=== PATIENT | female | born 1945 | race Caucasian/White ===

== ENCOUNTER 2020-04-18 13:15 | Outpatient (REF) | payer MEDICARE, OTHER, SELFPAY ==
--- NOTE | 2020-04-18 13:24 | XR_ITS ---
EXAMINATION: XR CHEST CLINICAL INFORMATION: Cough COMPARISON: None TECHNIQUE: 2 views of the chest were obtained. FINDINGS: The cardiac and mediastinal contours are normal. There is increased attenuation and increased linear markings seen at the lung bases suggestive of bilateral subsegmental atelectasis or small infiltrates. This is greater on the left. There is no pleural effusion or pneumothorax. There are degenerative changes of the spine. XR/XR chest 2V IMPRESSION: Bibasilar atelectasis or small infiltrates, left greater than right.
== END 2020-04-18 13:16 | disposition home or self-care (01) ==
LOC: HO.HMGCX 13:15
PROVIDERS: PCP Internal Medicine; Visit Provider Internal Medicine
DX: R05 Cough (principal); Z20.822 Contact with and (suspected) exposure to COVID-19
CPT/HCPCS: 36415; 71046; U0003

== ENCOUNTER 2020-05-02 09:58 | Outpatient (REF) | payer MEDICARE, OTHER, SELFPAY ==
--- NOTE | 2020-05-02 10:04 | XR_ITS ---
EXAMINATION: XR CHEST CLINICAL INFORMATION: Cough. COMPARISON: 04/18/2020 chest radiographs. TECHNIQUE: 2 views of the chest were obtained. FINDINGS: There has been interval decrease in linear opacities in the left mid and lower lung morales. Mild linear markings are seen in the lingula and right middle lobe. XR/XR chest 2V IMPRESSION: Interval improvement in left lung linear opacities/infiltrates with minimal residual markings. Mild linear atelectasis versus scarring in the right middle lobe and lingula.
== END 2020-05-02 09:59 | disposition home or self-care (01) ==
LOC: HO.HMGCX 09:58
PROVIDERS: PCP Internal Medicine; Visit Provider Internal Medicine
DX: R05 Cough (principal)
CPT/HCPCS: 71046

== ENCOUNTER 2020-09-22 08:44 | Outpatient (REF) | payer MEDICARE, SELFPAY ==
[2020-09-22 11:20] LABS: Glucose Urine UA NEG (NEG); Leukocyte Esterase Urine NEG (NEG); Nitrite Urine NEG (NEG); PH 7.5 (5.0-8.0); Specific Gravity - Urine 1.015 (1.005-1.025); Urine Blood NEG (NEG); Urine Ketones NEG (NEG); Urine Protein NEG (NEG-TRACE)
[2020-09-22 11:22] LABS: Appearance Urine HAZY; Color Urine YELLOW
[2020-09-22 11:26] LABS: Hematocrit 43.1 % (37-47); Hemoglobin 13.9 g/dl (12.0-16.0); Mean Corpuscular HGB Conc 32.3 g/dl (31.0-35.0); Mean Corpuscular Hemoglobin 28.8 pg (27.0-33.0); Mean Corpuscular Volume 89.2 fL (80-98); Mean Platelet Volume 10.3 fL (9.4-12.3); Platelet Count 238 X10*3/uL (160-400); Red Blood Count 4.83 X10*6/uL (4.20-5.50); Red Cell Distribution Width 13.3 % (11.0-16.0); White Blood Count 5.4 X10*3/uL (4.8-10.8)
[2020-09-22 11:39] LABS: Mucus Urine 1+ /LPF; RBC Urine 0 /HPF (0); Renal Epithelial Cells Urine 1+ /LPF; Squamous Epithelial Cell Urine 1+ /LPF
[2020-09-22 11:40] LABS: Amorphous Sediment Urine 1+ /LPF
[2020-09-22 11:58] LABS: Alanine Aminotransferase 11 U/L (0-31); Alkaline Phosphatase 72 U/L (39-117); Anion Gap 13 (12-20); Aspartate Amino Transferase 17 U/L (5-31); Bilirubin Total 0.6 mg/dL (0.0-1.0); Blood Urea Nitrogen 17 mg/dL (9-16); Calcium 9.3 mg/dL (8.4-10.2); Carbon Dioxide 28 mmol/L (22-29); Chloride 106 mmol/L (96-108); Cholesterol 215 mg/dL; Estimated Glomerular Filt Rate > 60; Glucose Fasting 83 mg/dL (60-99); HDL Cholesterol 70 mg/dL; LDL Cholesterol Calculated 135 mg/dl; Potassium 4.6 mmol/L (3.3-5.1); Sodium 142 mmol/L (135-145); Total Protein 6.6 g/dL (6.5-8.0); Triglycerides 52 mg/dL
[2020-09-22 12:00] LABS: Vitamin D 25-OH Total 43.7 ng/mL (>30)
== END 2020-09-22 08:45 | disposition home or self-care (01) ==
LOC: HO.HMGCLDS 08:44
PROVIDERS: PCP Internal Medicine; Visit Provider Internal Medicine
DX: Z00.00 Encounter for general adult medical examination without abnormal findings (principal); I10 Essential (primary) hypertension; E78.5 Hyperlipidemia, unspecified
CPT/HCPCS: 36415; 80053; 80061; 81001; 82306; 85027

== ENCOUNTER 2021-10-18 09:24 | Outpatient (REF) | payer MEDICARE, SELFPAY ==
[2021-10-18 11:22] LABS: MANUAL DIFF FLAG NO
[2021-10-18 11:29] LABS: Basophils Absolute Auto 0.1 X10*3/uL (0.0-0.2); Eosinophils Absolute Auto 0.3 X10*3/uL (0.0-0.4); Eosinophils Percent Auto 6.3 % (0-4); Hematocrit 40.5 % (37.0-47.0); Hemoglobin 13.3 g/dl (12.0-16.0); Imm Gran Abs Auto 0.02 X10*3/uL (0.00-0.03); Imm Gran Pct Auto 0.4 % (0.0-0.4); Lymphocytes Absolute Auto 1.6 X10*3/uL (1.2-4.9); Lymphocytes Percent Auto 31.2 % (20-40); Mean Corpuscular HGB Conc 32.8 g/dl (31.0-35.0); Mean Corpuscular Hemoglobin 29.3 pg (27.0-33.0); Mean Corpuscular Volume 89.2 fL (80.0-98.0); Mean Platelet Volume 10.4 fL (9.4-12.3); Monocytes Absolute Auto 0.6 X10*3/uL (0.1-1.2); Monocytes Percent Auto 11.1 % (2-11); Neutrophils Absolute Auto 2.5 x10*3/uL (2.0-8.3); Platelet Count 248 X10*3/uL (160-400); Red Blood Count 4.54 X10*6/uL (4.20-5.50)
[2021-10-18 11:54] LABS: Alanine Aminotransferase 13 U/L (0-31); Alkaline Phosphatase 74 U/L (39-117); Anion Gap 11 (12-20); Aspartate Amino Transferase 17 U/L (5-31); Bilirubin Total 0.7 mg/dL (0.0-1.0); Blood Urea Nitrogen 16 mg/dL (9-16); Calcium 9.1 mg/dL (8.4-10.2); Carbon Dioxide 28 mmol/L (22-29); Chloride 107 mmol/L (96-108); Cholesterol 226 mg/dL; Estimated Glomerular Filt Rate > 60; Glucose Fasting 91 mg/dL (60-99); HDL Cholesterol 80 mg/dL; LDL Cholesterol Calculated 136 mg/dl; Potassium 4.6 mmol/L (3.3-5.1); Sodium 141 mmol/L (135-145); Total Protein 6.8 g/dL (6.5-8.0); Triglycerides 52 mg/dL
[2021-10-18 12:03] LABS: TSH reflex Free T4 1.76 uIU/mL (0.32-4.0)
== END 2021-10-18 09:25 | disposition home or self-care (01) ==
LOC: HO.HMGCLDS 09:24
PROVIDERS: PCP Internal Medicine; Visit Provider Internal Medicine
DX: E78.5 Hyperlipidemia, unspecified (principal); I10 Essential (primary) hypertension
CPT/HCPCS: 36415; 80053; 80061; 84443; 85025

== ENCOUNTER 2022-01-09 10:26 | Outpatient (REF) | payer MEDICARE, SELFPAY ==
--- NOTE | ~2022-01-09 | US_ITS ---
EXAMINATION: US ABDOMEN COMPLETE CLINICAL INFORMATION: Right upper quadrant pain. COMPARISON: None TECHNIQUE: Real-time imaging of the abdominal viscera. FINDINGS: PANCREAS: Normal. ABDOMINAL AORTA: The proximal, mid, and distal segments are normal in caliber. INFERIOR VENA CAVA: Visualized portions are normal. LIVER: Normal. The liver is normal in size. The liver contour is normal. Parenchymal echogenicity is normal. No focal hepatic lesion. There is no intrahepatic biliary duct dilatation seen. GALLBLADDER: Normal. The gallbladder is physiologically distended without evidence of stones, sludge, polyps, wall thickening or pericholecystic fluid. COMMON BILE DUCT: Normal in caliber measuring 0.75 cm in diameter. RIGHT KIDNEY: Normal. No hydronephrosis. No renal calculi or focal parenchymal lesions. The kidney measures 9.2 cm in maximum dimension. LEFT KIDNEY: There is a peripelvic cyst in the midpole measuring 2.2 x 1.5 x 1.7 cm. No hydronephrosis or renal calculi. The kidney measures 9.9 cm in maximum dimension. SPLEEN: Normal. The spleen measures 7.7 cm in maximum dimension. FREE FLUID: None. US/US abdomen complete IMPRESSION: Left renal cyst otherwise unremarkable exam.
== END 2022-01-09 10:27 | disposition home or self-care (01) ==
LOC: HO.HMGCX 10:26
PROVIDERS: PCP Internal Medicine; Visit Provider Internal Medicine
DX: R10.11 Right upper quadrant pain (principal)
CPT/HCPCS: 76700

== ENCOUNTER 2022-04-23 11:55 | Outpatient (REF) | payer MEDICARE, SELFPAY ==
[2022-04-23 14:20] LABS: Alanine Aminotransferase 11 U/L (0-31); Albumin Level 3.9 g/dL (3.5-5.0); Alkaline Phosphatase 70 U/L (39-117); Anion Gap 13 (12-20); Aspartate Amino Transferase 14 U/L (5-31); Bilirubin Total 0.5 mg/dL (0.0-1.0); Blood Urea Nitrogen 15 mg/dL (9-16); Calcium 9.5 mg/dL (8.4-10.2); Carbon Dioxide 29 mmol/L (22-29); Chloride 107 mmol/L (96-108); Cholesterol 205 mg/dL; Estimated Glomerular Filt Rate > 60; Glucose Fasting 87 mg/dL (60-99); HDL Cholesterol 77 mg/dL; LDL Cholesterol Calculated 118 mg/dl; Sodium 144 mmol/L (135-145); Total Protein 6.5 g/dL (6.5-8.0); Triglycerides 50 mg/dL
== END 2022-04-23 11:56 | disposition home or self-care (01) ==
LOC: HO.HMGCLDS 11:55
PROVIDERS: PCP Internal Medicine; Visit Provider Internal Medicine
DX: E78.5 Hyperlipidemia, unspecified (principal); I10 Essential (primary) hypertension
CPT/HCPCS: 36415; 80053; 80061

== ENCOUNTER → 2022-04-30 12:56 | Outpatient (BNVA) | payer MEDICARE, SELFPAY | PROVIDERS: PCP Internal Medicine; Visit Provider Surgery | DX: K40.90 Unilateral inguinal hernia, without obstruction or gangrene, not specified as recurrent (principal); E78.5 Hyperlipidemia, unspecified; I10 Essential (primary) hypertension | CPT/HCPCS: 99202 ==

== ENCOUNTER 2022-05-11 16:14 | Outpatient (REF) | payer MEDICARE, SELFPAY ==
--- NOTE | ~2022-05-11 | CT_ITS ---
EXAMINATION: CT PELVIS WITHOUT CONTRAST CLINICAL INFORMATION: Unilateral inguinal hernia. COMPARISON: None TECHNIQUE: Helical scanning was performed with submillimeter collimation through the pelvis. Sagittal and coronal multiplanar 2-D reconstructions were obtained. This CT examination was performed using dose optimization techniques as appropriate, variously including the following: *Automated exposure control *Adjustment of mA and/or kV according to patient size (this includes techniques or standardized protocols for targeted exams where dose is matched to indication/reason for exam; i.e. extremities or head) *Use of iterative reconstruction technique DLP: 739 mGy-cm FINDINGS: PELVIS: Bilateral inguinal hernias containing small bowel. The hernia on the right appears to be direct type (medial to the inferior epigastric artery). There may be a small femoral component on the right as well. The hernia on the left appears to be indirect (lateral to the inferior epigastric artery). There is no evidence of bowel obstruction. There are simple parapelvic cysts in the left kidney. No imaging follow-up is recommended. Mild diverticulosis of the sigmoid colon. No lymphadenopathy. Normal caliber abdominal aorta.. There is a simple cyst in the left ovary measuring 3.3 cm. OSSEOUS STRUCTURES: Degenerative changes in the spine. CT/CT pelvis wo IV con IMPRESSION: Right inguinal hernia containing small bowel (appears to be direct type) with possible small femoral component as well. Left inguinal hernia containing small bowel (appears to be indirect type). 3.3 cm simple density cyst in the left ovary. Recommend follow-up ultrasound in 6-12 months.
== END 2022-05-11 16:15 | disposition home or self-care (01) ==
LOC: HO.CT 16:14
PROVIDERS: Visit Provider Surgery
DX: K40.90 Unilateral inguinal hernia, without obstruction or gangrene, not specified as recurrent (principal)
CPT/HCPCS: 72192

== ENCOUNTER → 2022-05-22 14:51 | Outpatient (BNVA) | payer MEDICARE, SELFPAY | PROVIDERS: PCP Internal Medicine; Visit Provider Surgery | DX: K40.20 Bilateral inguinal hernia, without obstruction or gangrene, not specified as recurrent (principal); E55.9 Vitamin D deficiency, unspecified; I10 Essential (primary) hypertension; E78.5 Hyperlipidemia, unspecified | CPT/HCPCS: 99212 ==

== ENCOUNTER 2022-06-14 06:58 | Day surgery (SDC) | payer MEDICARE, SELFPAY ==
--- NOTE | 2022-06-13 10:48 | HO.ANESPROP2 ---
Documented by User: Cadence Lynn NP 06/13/22 10:53 HPI - Anesthesia Eval Consult details Narrative: 76yo F for Bilateral Hernia Repair Inguinal, w/mesh PMFSH Active Problems Active Problems: All Active Problems (Updated 05/25/22 @ 13:26 by Leah Oliva MD) Chest pain (Acute) Anxiety (Acute) Bilateral inguinal hernia without obstruction or gangrene (Acute) Inguinal hernia (Acute) Vitamin D deficiency (Acute) RUQ abdominal pain (Acute) HTN (hypertension) (Acute) Annual physical exam (Acute) Hyperlipidemia (Acute) Cough (Acute) Past Medical History Medical History Annual physical exam Cough GERD (gastroesophageal reflux disease) HTN (hypertension) Hyperlipidemia Surgical History Surgical History H/O colonoscopy Social History Social History Housing: House Alcohol intake: current Alcohol intake frequency: holidays/special occasions only Patient Tobacco Use Status: Never used Tobacco e-Cigarette/Vaping Use: Never Used Are you DNR?: No Advance Directives: No Advance Directives Information Provided: Yes Nutrition Risks: No Nutritional Risk Current occupational status: retired Cognitive needs: No Hearing needs: No Vision needs: No Meds Allergies Allergy/AdvReac Type Severity Reaction Status Date / Time No Known Allergies Allergy Verified 06/08/22 16:12 Home Medications Medication Instructions Recorded Confirmed Last Taken Type calcium carbonate 600 mg calcium 600 mg PO DAILY 04/30/22 06/08/22 Unknown History (1,500 mg) tablet (Calcium) aspirin 81 mg PO 06/14/22 06/11/22 History Exam Exam Date and Time: June 13, 2022 1048 Pertinent Lab Results Pertinent Lab Results: Laboratory Tests 10/18/21 04/23/22 09:29 12:02 WBC 5.0 Hgb 13.3 Hct 40.5 Plt Count 248 Sodium 144 Potassium 5.0 Chloride 107 Carbon Dioxide 29 BUN 15 Creatinine 0.65 Narrative Narrative: EKG 05/2022 SB @ 50 Assessment and Plan Assessment Anesthesia Assessment: Chart Reviewed Documented by User: Linus Foy MD 06/14/22 09:28 [facility] Past Medical History Medical History Annual physical exam Cough GERD (gastroesophageal reflux disease) HTN (hypertension) Hyperlipidemia Narrative: very active, swims. Family History Family history of problems with anesthesia: No Surgical History Surgical History H/O colonoscopy History of Problems with Anesthesia: No Social History Social History Housing: House Alcohol intake: current Alcohol intake frequency: holidays/special occasions only Patient Tobacco Use Status: Never used Tobacco e-Cigarette/Vaping Use: Never Used Are you DNR?: No Advance Directives: No Advance Directives Information Provided: Yes Nutrition Risks: No Nutritional Risk Current occupational status: retired Cognitive needs: No Hearing needs: No Vision needs: No Meds Allergies Allergy/AdvReac Type Severity Reaction Status Date / Time No Known Allergies Allergy Verified 06/08/22 16:12 Home Medications Medication Instructions Recorded Confirmed Last Taken Type calcium carbonate 600 mg calcium 600 mg PO DAILY 04/30/22 06/08/22 Unknown History (1,500 mg) tablet (Calcium) aspirin 81 mg PO 06/14/22 06/11/22 History Exam Airway Mallampati Class: I TM Dist: <=3cm Neck ROM: Full Denture: Upper and Lower Heart: ok Lungs: ok Assessment and Plan Assessment Anesthesia Assessment: Anesthesia Plan Discussed and Chart Reviewed Final Anesthetic Review Family History of Problems with Anesthesia: No History of Problems with Anesthesia: No NPO: Yes ASA Class: II Final Preanesthetic Review: No Changes in Pt Med Stat, Meds/Allgs Chart Reviewed, Consent Obtained/Reviewed and Anes Risks/Benef Reviewed Patient Risk: Intermediate Procedure Risk: Low Anesthetic Plan Anesthetic Plan: Agree w/ Assess. and Plan Disposition: Standard PACU
[2022-06-14 07:09] VITALS: BMI 29.9
[2022-06-14] MEDS: Lactated Ringers 1,000 ML 100 ML IVCONT (07:56)
[2022-06-14 08:07] VITALS: BP 150/77; PULSE 58; RESP 18; TEMP 36.7; O2SAT 97
--- NOTE | 2022-06-14 09:01 | MHC.SHP ---
Pre-Procedural Eval Section A Date of Service: 06/14/22 The patient is an INPATIENT: No The History & Physical has been completed within 30 days and I have reviewed it.: Yes Section B Chief Complaint: Bilateral inguinal hernia, without obstruction or Allergies: Allergies Allergy/AdvReac Type Severity Reaction Status Date / Time No Known Allergies Allergy Verified 06/08/22 16:12 Plan I have reviewed the history and physical and performed a pertinent physical examination on my patient. No changes have occurred unless specified. Time Spent With Patient Time: Total time managing care of this patient today ____ minutes.
--- NOTE | 2022-06-14 09:05 | P.OP_ITS ---
Operative Note Operative Note Date of Service: 06/14/22 Narrative: Preop diagnosis: [Bilateral inguinal hernia, left more symptomatic than right] Postop diagnosis: [Same, indirect and attenuated round ligaments bilaterally] Procedure: [Open bilateral inguinal hernia repair with polypropylene mesh] Surgeon: Deon Espinoza MD Assist: [] Anesthesia: [GET, Marcaine, 0.5% with epi] Estimated blood loss: [3cc] Specimen: [none] Intraoperative findings: [Bilateral inguinal hernia, mixed direct and indirect, attenuated round ligament bilaterally which was sacrificed bilateral] Indications: [The patient is a 76-year-old predominantly Croatian speaking woman who presented with left groin pain. Given her body habitus, and possible right- sided hernia, a CT was performed which demonstrated bilateral inguinal hernia. The patient also notes a history of 2 sisters having inguinal hernias and 1 of them had a repair and [place] and had a complications from the mesh. Given the symptomatic left side, via dock pumper we discussed the pros and cons of bilateral inguinal hernia verses unilateral left inguinal hernia repair. The risks of mesh use and need for mesh to minimize recurrence was also discussed and apparently understood. After long discussion, the patient wanted to proceed with bilateral inguinal hernia repair and agreed to mesh repair. The option of laparoscopic repair was also discussed. These risks of hernia surgery include, but are not limited to: Bleeding, infection, hernia recurrence especially if weight gain or postoperative instructions are not followed, nerve entrapment, chronic pain, mesh complications that could require reoperation. The patient se emed to understand all of these risks, benefits and options, had her questions answered and wanted to proceed. I recommended starting on the left, symptomatic side and the patient agreed. Procedure: The patient was identified in the preoperative holding area by myself and the operative site marked by me confirming bilateral inguinal hernia, and I confirmed we would start on the left.. 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 The operative field hair had been clipped in preop holding. The patient was again identified in the operating suite and placed supine on the table. See anesthesia notes for full details regarding anesthesia care and management. An appropriate time-out was performed confirming the operative site and procedure. The patient was then widely prepped and draped in the usual manner using chlorprep. An ileoinguinal nerve block was performed using Marcaine 0.5% with epi and a sta ndard left inguinal herniorrhaphy incision made sharply through the skin. Dissection was carried through all layers using electric cautery for dissection and hemostasis. Additional local was infiltrated is the external oblique aponeurosis, in the external oblique aponeurosis opened sharply in the direction of its fibers to the external ring. The ilioinguinal nerve was identified and sacrificed.. The round ligament was dissected at the level of the pubic tubercle and surrounded with hernia tape. The floor was inspected and a mixed direct & indirect left inguinal hernia was found. Careful dissection of the round ligament was attempted, but the structure was so attenuated it was ultimately sacrificed into the defect included in the floor imbrication. The hernia sac was highly dissected and the floor was imbricated using a 2-0 Polysorb and a standard Moiz tension-free herniorrhaphy performed using polypropylene patch that was sutured to the pubic tubercle and inguinal ligament using a 2-0 Polypropylene. Next, the operative field was inspected for hemostasis which was good, the external oblique aponeurosis was closed with a running 0 Polysorb suture, subcutaneous tissues closed with 3-0 Polysorb and skin closed with running 4-0 Monocryl subcuticular suture. Attention was then addressed to the right inguinal area and a right inguinal nerve block performed. A standard right inguinal herniorrhaphy incision made sharply through the skin. Dissection was carried through all layers using electric cautery for dissection and hemostasis. Additional local was infiltra brittany is the external oblique aponeurosis, in the external oblique aponeurosis opened sharply in the direction of its fibers to the external ring. The ilioinguinal nerve was identified and sacrificed through the dissection. The cord was mobilized at the level of the pubic tubercle and surrounded with hernia tape. The floor was inspected and a mixed direct and indirect hernia was found. The hernia sac was highly dissected its viable properitoneal fat reduced and suture imbrication of the floor performed with a 2 0 Polysorb. Next, a standard Moiz tension-free herniorrhaphy performed using polypropylene patch that was sutured to the pubic tubercle and inguinal ligament using a 2-0 Polypropylene. Next, the operative field was inspected for hemostasis which was good, the external oblique aponeurosis was closed with a running 0 Polysorb suture, subcutaneous tissues closed with 3-0 Polysorb and skin closed with running 4-0 Monocryl subcuticular suture. Patient tolerated the procedure well was sent to the recovery area in stable condition. All sponge and instrument counts were correct x2. At the patient's request, I contact her son, Pablo and daughter, but they were both here in the waiting room and I have reviewed the operation, activity restrictions and answered their questions. Instructions regarding activity and pain management were reviewed. Questions were answered.]
[2022-06-14 11:30] VITALS: BP 116/47; PULSE 56; RESP 16; TEMP 36.8; O2SAT 96
[2022-06-14 11:35] VITALS: BP 124/50; PULSE 60; RESP 16; O2SAT 97
[2022-06-14 11:40] VITALS: BP 124/50; PULSE 53; RESP 16; O2SAT 96
[2022-06-14 11:45] VITALS: BP 123/59; PULSE 56; RESP 16; O2SAT 96
[2022-06-14 12:00] VITALS: BP 118/60; PULSE 61; RESP 16; TEMP 36.8; O2SAT 97
== END 2022-06-14 13:01 | disposition home or self-care (01) ==
LOC: HO.SSS 06:58
PROVIDERS: PCP Internal Medicine; Visit Provider Surgery
PROC: (CPT 49505; principal; 2022-06-14 08:40)
DX: K40.20 Bilateral inguinal hernia, without obstruction or gangrene, not specified as recurrent (principal); I10 Essential (primary) hypertension; E78.5 Hyperlipidemia, unspecified; E55.9 Vitamin D deficiency, unspecified; R05.9 Cough, unspecified; Z79.82 Long term (current) use of aspirin; Z79.899 Other long term (current) drug therapy
CPT/HCPCS: 49505; C1781; J0690; J1885; J2405; J3010

== ENCOUNTER → 2022-06-22 10:00 | Outpatient (BNVA) | payer MEDICARE, SELFPAY | PROVIDERS: PCP Internal Medicine; Referring Provider Internal Medicine; Visit Provider Surgery | DX: Z48.815 Encounter for surgical aftercare following surgery on the digestive system (principal); Z98.890 Other specified postprocedural states | CPT/HCPCS: 99212 ==

== ENCOUNTER 2022-06-28 09:35 | Outpatient (REF) | payer MEDICARE, SELFPAY ==
[2022-06-28 12:02] LABS: Anion Gap 12 (12-20); Blood Urea Nitrogen 15 mg/dL (9-16); Calcium 9.4 mg/dL (8.4-10.2); Carbon Dioxide 29 mmol/L (22-29); Chloride 108 mmol/L (96-108); Estimated Glomerular Filt Rate > 60; Glucose Random 90 mg/dL (60-115); Potassium 4.7 mmol/L (3.3-5.1); Sodium 144 mmol/L (135-145)
== END 2022-06-28 09:36 | disposition home or self-care (01) ==
LOC: HO.HMGCLDS 09:35
PROVIDERS: PCP Internal Medicine; Visit Provider Internal Medicine
DX: I10 Essential (primary) hypertension (principal)
CPT/HCPCS: 36415; 80048

== ENCOUNTER → 2022-07-03 10:11 | Outpatient (BNVA) | payer MEDICARE, SELFPAY | PROVIDERS: PCP Internal Medicine; Referring Provider Internal Medicine; Visit Provider Surgery | DX: Z48.815 Encounter for surgical aftercare following surgery on the digestive system (principal); Z87.19 Personal history of other diseases of the digestive system | CPT/HCPCS: 99212 ==

== ENCOUNTER 2023-01-21 09:26 | Outpatient (AMB) | payer MEDICARE, SELFPAY ==
--- NOTE | 2023-01-21 10:10 | A.OFFVIS_ITS ---
Intake Vital Signs 01/21/23 10:11 Height 5 ft 2 in Weight 162 lb BMI 29.6 BP 126/68 Blood Pressure Location Lt brachial Position Sitting Pulse 55 Pulse Source Pulse Oximeter Pulse Oximetry (%) 97 Oxygen Delivery Method Room Air Intake Visit Reasons: SWV G0439/HTN Allergies No Known Allergies Allergy (Verified 01/21/23 10:24) Medication List - Last Reconciled 01/21/23 by Leah Oliva MD [aspirin 81 mg PO] calcium carbonate (Calcium) 600 mg PO DAILY lisinopril-hydrochlorothiazide 20-12.5 mg 1 1/2 orally daily; lorazepam 0.5 mg PO DAILY PRN pravastatin 20 mg PO DAILY HPI SWV G0439/HTN HPI Details Pt presents for annual visit. Initiated the conversation about Advanced Directives. Advanced Directives help? patients prepare for current and future decisions about their medical treatment? and place of care. Discussed with patient that it is a process where a patients? current condition and prognosis are reviewed, their wishes for information? regarding their illness are elicited, and likely medical dilemmas are presented? and options discussed. The form can be amended as needed, reviewed yearly and? make changes as needed IPPE/AWV ? year old presents? for her ? Annual? Wellness Visit, initial visit.? Medical / Social History Reviewed? Past Medical History ?Yes? . ? [place]? of Care / Care Team list updated ?Yes . ? Surgical/Hospitalization? History ?Yes . ? Current Medications? (including OTC and supplements) ?Yes . ? Family History ?Yes? . ? Tobacco? Control form ?Yes . ? AUDIT-C (Alcohol use) form? ?Yes . ? Illicit drug use in Social? History ?Yes . ? Current diagnosis of? depression? ?No ? Appropriate PHQ2/PHQ9? completed ?Yes . ? Data entered by ?Medical? Etymology Teacher and reviewed by provider ? Fall Risk ? Fall? History? Have you had any falls with? injury in the past year? ?No . ? Have you had two or more? falls in the past year? ?No . ? Fall Risk Assessment: ?No? falls in the past year . ? HRA filled out by? the patient, reviewed by Provider and scanned. ? IPPE/AWV ? Balance? [place]? ?Yes . ? Tandem? walk ?Yes . ? Walk and? Turn ?Yes . ? Rise from? sit to stand ?Yes . ?Vision? Corrective? lens ?Yes ? Vision? screen ? Up-to-date, has an appointment [] for vision? screening and glaucoma screening ?Hearing? Whisper? test ?pass .? Initiated the conversation about Advanced Directives. Advanced Directives help? patients prepare for current and future decisions about their medical treatment? and place of care. Discussed with patient that it is a process where a patients? current condition and prognosis are reviewed, their wishes for information? regarding their illness are elicited, and likely medical dilemmas are presented? and options discussed. The form can be amended as needed, reviewed yearly and? make changes as needed Written? Plan?Completed. See Patient? Documents. [facility] Medical History Annual physical exam Hyperlipidemia Cough GERD (gastroesophageal reflux disease) HTN (hypertension) Surgical History History of bilateral inguinal hernia repair H/O colonoscopy Family History Father Dementia Mother No problems noted. Social History Housing: House Alcohol intake: current Alcohol intake frequency: holidays/special occasions only Patient Tobacco Use Status: Never used Tobacco e-Cigarette/Vaping Use: Never Used Current occupational status: retired Cognitive needs: No Hearing needs: No Vision needs: No Questionnaire Medicare Wellness Checkup [age] What gender do you identify with?: female During the past 4 weeks, how much have you been bothered by emotional problems such as feeling anxious, depressed, irritable, sad or downhearted, and blue?: slightly During the past 4 weeks, has your physical & emotional health limited your social activities with family, friends, neighbors, or groups?: not at all During the past 4 weeks, how much bodily pain have you generally had?: very mild pain During the past 4 weeks, was someone available to help you if you needed & wanted help?: yes, as much as I wanted During the past 4 weeks, what was the hardest physical activity you could do for at least 2 minutes?: light Can you get to places out of walking distance without help? (For eg., can you travel alone on buses, taxis or drive your car?): Yes Can you go shopping for groceries or clothes without someone's help?: Yes Can you prepare your own meals?: Yes Can you do your housework without help?: Yes Because of any health problems, do you need the help of another person with your personal care needs such as eating, bathing, dressing or getting around the house?: No Can you handle your own money without help?: Yes During the past 4 weeks, how would you rate your health in general?: very good During the past 4 weeks how have things been going for you?: pretty well Are you having difficulties driving your car?: no Do you always fasten your seat belt when you are in a car?: yes, usually During past 4 weeks, have you been bothered by the following: never: Falling or dizzy when standing up, Sexual problems?, Trouble eating well?, Teeth or denture problems?, Problems using the telephone? and Tiredness or fatigue? Have you fallen 2 or more times in the past year?: No Are you afraid of falling?: No Are you a smoker?: no During the past 4 weeks, how many drinks of wine, beer, or other alcoholic beverages did you have?: 1 drink or less per week Do you exercise for about 20 minutes 3 or more times a week?: no, I usually do not exercise this much Have you been given information to help with the following?: no: Hazards in your house that might hurt you? and no: Keeping track of your medications? How often do you have trouble taking medicines the way you have been told to take them?: I always take medicine as prescribed How confident are you that you can control & manage most of your health problems?: very confident What is your race?: White Mini Mental State Exam (MMSE) Orientation What is the (year) (season) (date) (day) (month)?: year, season, date, day and month Where are we (state) (county) (town or city) (hospital) (floor)?: state, county, town or city, hospital/clinic and floor Registration Name of 3 unrelated objects clearly and slowly, then ask patient to repeat all 3 of them. (1st repeat determines score. Make sure they can repeat all three): object 1, object 2 and object 3 Attention & Calculation (CHOOSE ONE) Ask pt to begin with 100 & count backward by 7. Stop after 5 repeats. If pt cannot ask them to spell the word WORLD backward.: 93 Spell WORLD backwards (DLROW): 5 letters Recall Ask patient to repeat the 3 items from question #3.: object 1, object 2 and object 3 Language Show patient a wristwatch & ask what it is. Repeat for pencil.: watch and pencil Ask the patient to repeat the phrase 'No ifs, ands, or buts' after you.: correct Ask the patient to 'take a piece of paper with their right hand' 'fold paper in half' 'place paper on floor': take paper in right hand, fold paper in half and p lace paper on floor Print the sentence 'CLOSE YOUR EYES' on a piece. If patient actually closes eyes then score.: followed written direction Give patient a blank piece of paper & ask to write a sentence. Score if it contains a noun & verb.: sentence contains subject and verb Score Score: 30 Activity of Daily Living Bathing - sponge bath, tub bath or shower: receives no assistance (gets in/out by self, if usual bathing means Dressing - getting clothes from closets & drawers, including inner/outer garments & fasteners.: gets clothes & gets completely dressed without help Toileting - going to the 'toilet room' for urine/bowel elimination & cleaning self/arranging clothes: goes to toilet room, cleans self, arranges clothes without help Transfer: moves in & out of bed and chair without help (may use support object) Continence: controls urination/bowel movements completely by self Feeding: feeds self without help Total Score: 0 Information obtained from: patient Using telephone: independent Traveling: independent Shopping: independent Preparing meals: independent Housework: independent Taking medicine: independent Managing money: independent PHQ-9 Over the last 2 weeks, how often have you been bothered by any of the following problems? 1. Little interest or pleasure in doing things: not at all 2. Feeling down, depressed, or hopeless: not at all 3. Trouble falling or staying asleep, or sleeping too much: not at all 4. Feeling tired or having little energy: not at all 5. Poor appetite or overeating: not at all 6. Feeling bad about yourself - or that you are a failure or have let yourself or your family down: not at all 7. Trouble concentrating on things, such as reading the newspaper or watching television: not at all 8. Moving or speaking so slowly that other people could have noticed. Or the opposite - being so fidgety or restless that you have been moving around a lot more than usual: not at all 9. Thoughts that you would be better off or of hurting yourself in some way: not at all Total score: 0 Depression Screening Interpretation: Negative Depression Screening Done: Yes Source: Developed by Drs. Tejas Miller, Tatum Reilly, Kayden Handley and colleagues, with an educational perico from [employer]. Review of Systems Const All systems reviewed & are unremarkable except as noted in HPI and below Reports no additional complaints Eyes Reports no additional complaints ENT Reports no additional complaints Card Reports no additional complaints Resp Reports no additional complaints GI Reports no additional complaints Reports no additional complaints Physical Exam Vital Signs: Last Vital Signs Pulse 55 01/21/23 10:11 BP 126/68 01/21/23 10:11 Pulse Ox 97 01/21/23 10:11 Oxygen Delivery Method Room Air 01/21/23 10:11 BMI result Body Mass Index 29.6 Const General: no acute distress HEENT Head: Yes normal to inspection Eyes General: appearance normal, both eyes and all related structures Neck Neck: Yes no lymphadenopathy and Yes supple Resp Effort & Inspection: normal respiratory effort Auscultation: clear to auscultation bilaterally Cardio Rhythm: regular rhythm Heart sounds: S1 normal heart sound present and S2 normal heart sound present GI Inspection: Yes normal to inspection Palpation (GI): Soft to palpation Percussion: Yes normal to percussion Auscultation: normal bowel sounds Extrem General: Yes no clubbing, cyanosis or edema Assessment & Plan Assessment & Plan (1) Annual physical exam: Code(s): Z00.00 - Encounter for general adult medical examination without abnormal findings Plan: Well-balanced diet physical activity discussed with the patient. (2) Hyperlipidemia: Code(s): E78.5 - Hyperlipidemia, unspecified Plan: Continue pravastatin (3) HTN (hypertension): Code(s): I10 - Essential (primary) hypertension Plan: Continue current medications return in 1 year or as needed Orders: Orders Comprehensive Shepherd. Panel Fast 365 Days E78.5 - Hyperlipidemia, unspecified, I10 - Essential (primary) hypertension, Z00.00 - Encounter for general adult medical examination without abnormal findings Lipid Panel 365 Days E78.5 - Hyperlipidemia, unspecified, I10 - Essential (primary) hypertension, Z00.00 - Encounter for general adult medical examination without abnormal findings Complete Blood Count Auto Diff 365 Days E78.5 - Hyperlipidemia, unspecified, I10 - Essential (primary) hypertension, Z00.00 - Encounter for general adult medical examination without abnormal findings Medications: New fluticasone propionate 50 mcg/actuation (Flonase Allergy Relief) administer into each nostril 1 spray intranasal DAILY 16 grams 5RF Quality Reporting (2019) Depression/Bipolar (159/160/161/177) PHQ-9: Total score: 0 Coding Level of Care Code Medicare Subsequent (G0439) Diagnoses Annual physical exam Z00.00 Hyperlipidemia E78.5 HTN (hypertension) I10 CPT Codes Advance Care Planning - Time spent: 1-15 minutes, not on file ([id number]) Advance Care Planning Advance Care Planning discussion: Exists, not on file Forms completed: Health Care Proxy Time spent: 1-15 minutes, not on file
[2023-01-21 10:11] VITALS: BP 126/68; PULSE 55; O2SAT 97; BMI 29.6
== END 2023-01-21 12:55 | disposition home or self-care (01) ==
PROVIDERS: Visit Provider Internal Medicine
DX: Z00.00 Encounter for general adult medical examination without abnormal findings (principal); E78.5 Hyperlipidemia, unspecified; I10 Essential (primary) hypertension
CPT/HCPCS: 1124F; G0439

== ENCOUNTER 2023-01-21 09:31 | Outpatient (REF) | payer MEDICARE, SELFPAY ==
[2023-01-21 11:25] LABS: MANUAL DIFF FLAG NO
[2023-01-21 11:40] LABS: Basophils Percent Auto 0.8 % (0-2); Eosinophils Absolute Auto 0.3 X10*3/uL (0.0-0.4); Eosinophils Percent Auto 5.3 % (0-4); Hematocrit 43.9 % (37.0-47.0); Hemoglobin 14.3 g/dl (12.0-16.0); Imm Gran Abs Auto 0.04 X10*3/uL (0.00-0.03); Imm Gran Pct Auto 0.8 % (0.0-0.4); Lymphocytes Absolute Auto 1.5 X10*3/uL (1.2-4.9); Lymphocytes Percent Auto 29.1 % (20-40); Mean Corpuscular HGB Conc 32.6 g/dl (31.0-35.0); Mean Platelet Volume 10.3 fL (9.4-12.3); Monocytes Absolute Auto 0.6 X10*3/uL (0.1-1.2); Monocytes Percent Auto 12.2 % (2-11); Neutrophils Absolute Auto 2.7 x10*3/uL (2.0-8.3); Neutrophils Percent Auto 51.8 % (45-73); Platelet Count 259 X10*3/uL (160-400); Red Blood Count 4.93 X10*6/uL (4.20-5.50); Red Cell Distribution Width 13.7 % (11.0-16.0); White Blood Count 5.3 X10*3/uL (4.8-10.8)
[2023-01-21 12:51] LABS: Alanine Aminotransferase 12 U/L (0-31); Albumin Level 4.1 g/dL (3.5-5.0); Alkaline Phosphatase 72 U/L (39-117); Anion Gap 16 (12-20); Aspartate Amino Transferase 16 U/L (5-31); Bilirubin Total 0.7 mg/dL (0.0-1.0); Blood Urea Nitrogen 13 mg/dL (9-16); Calcium 10.1 mg/dL (8.4-10.2); Carbon Dioxide 27 mmol/L (22-29); Chloride 103 mmol/L (96-108); Cholesterol 200 mg/dL (<200); Estimated Glomerular Filt Rate > 60; Glucose Fasting 86 mg/dL (60-99); HDL Cholesterol 73 mg/dL (>40); LDL Cholesterol Calculated 113 mg/dL (<100); Potassium 4.5 mmol/L (3.3-5.1); Sodium 141 mmol/L (135-145); TSH reflex Free T4 3.14 uIU/mL (0.32-4.0); Total Protein 7.4 g/dL (6.5-8.0); Triglycerides 70 mg/dL (<150)
== END 2023-01-21 09:32 | disposition home or self-care (01) ==
LOC: HO.HMGCLDS 09:31
PROVIDERS: PCP Internal Medicine; Visit Provider Internal Medicine
DX: E78.5 Hyperlipidemia, unspecified (principal); I10 Essential (primary) hypertension
CPT/HCPCS: 36415; 80053; 80061; 84443; 85025

== ENCOUNTER 2023-02-01 14:01 | Outpatient (AMB) | payer MEDICARE, SELFPAY ==
[2023-02-01 14:05] VITALS: BP 154/72; PULSE 63; TEMP 35.8; O2SAT 94; BMI 30.4
--- NOTE | 2023-02-01 14:05 | A.OFFVIS_ITS ---
Intake Vital Signs 02/01/23 14:05 Height 5 ft 2 in Weight 166 lb 3.657 oz BMI 30.4 BP 154/72 H Blood Pressure Location Rt brachial Position Sitting Pulse 63 Pulse Source Pulse Oximeter Temp 96.4 F L Pulse Oximetry (%) 94 Oxygen Delivery Method Room Air Intake Visit Reasons: Abdominal pain Allergies No Known Allergies Allergy (Verified 02/01/23 14:12) HPI HPI Comments History of Present Illness Details The patient is accompanied by her son today. She underwent open bilateral mesh repair of inguinal hernia 06/14/22. She reports that she took only Tylenol and is using ice packs intermittently. She never took any narcotics and reports that she feels fine, her bowels are working normally and she has no other complaint. She otherwise denies interval change. She states that a couple months ago, she started to developed pain in her left groin and noted swelling. She denies any signs or symptoms of obstruction or incarceration. Patient requested that her son service hand sander for postoperative instructions recent and declined the interpretation system. [facility] Medical History Annual physical exam Hyperlipidemia Cough GERD (gastroesophageal reflux disease) HTN (hypertension) Surgical History History of bilateral inguinal hernia repair H/O colonoscopy Family History Father Dementia Mother No problems noted. Social History Housing: House Alcohol intake: current Alcohol intake frequency: holidays/special occasions only Patient Tobacco Use Status: Never used Tobacco e-Cigarette/Vaping Use: Never Used Current occupational status: retired Cognitive needs: No Hearing needs: No Vision needs: No Review of Systems Const All systems reviewed & are unremarkable except as noted in HPI and below Reports as per HPI Physical Exam On exam, the patient is nontoxic She is having no respiratory difficulty The patient is examined standing and her right inguinal hernia repair is intact with no tenderness and no evidence of recurrence The patient has a bulge in her left groin, but given her habitus it is difficult to tell if it is a femoral hernia or failure of the mesh. Assessment & Plan Assessment & Plan (1) Inguinal hernia: Code(s): K40.90 - Unilateral inguinal hernia, without obstruction or gangrene, not specified as recurrent (2) HTN (hypertension): Code(s): I10 - Essential (primary) hypertension Plan I have ordered a CT of the pelvis with Valsalva and will see the patient afterwards. She likely has either failure of her primary repair or a new femoral hernia. I will see the patient back after the CT is done. Given her symptoms, CT is ordered stat. Orders: Orders CT pelvis wo IV con Today R10.32 - Left lower quadrant pain Coding Level of Care Code Est Pt Level 4 (92011) Diagnoses Inguinal hernia K40.90 HTN (hypertension) I10
== END 2023-02-01 14:27 | disposition home or self-care (01) ==
PROVIDERS: PCP Internal Medicine; Visit Provider Surgery
DX: K40.90 Unilateral inguinal hernia, without obstruction or gangrene, not specified as recurrent (principal); I10 Essential (primary) hypertension
CPT/HCPCS: 99214

== ENCOUNTER → 2023-02-01 14:01 | Outpatient (BNVA) | payer MEDICARE, SELFPAY | PROVIDERS: PCP Internal Medicine; Visit Provider Surgery | DX: K40.90 Unilateral inguinal hernia, without obstruction or gangrene, not specified as recurrent (principal); I10 Essential (primary) hypertension | CPT/HCPCS: 99212 ==

== ENCOUNTER 2023-02-11 09:31 | Outpatient (REF) | payer MEDICARE, SELFPAY ==
--- NOTE | ~2023-02-11 | CT_ITS ---
EXAMINATION: CT PELVIS WITHOUT CONTRAST CLINICAL INFORMATION: Left lower quadrant pain. COMPARISON: 05/11/2022 TECHNIQUE: Helical scanning was performed with submillimeter collimation through the pelvis. Sagittal and coronal multiplanar 2-D reconstructions were obtained. Please note images were taken with Valsalva maneuver. This CT examination was performed using dose optimization techniques as appropriate, variously including the following: *Automated exposure control *Adjustment of mA and/or kV according to patient size (this includes techniques or standardized protocols for targeted exams where dose is matched to indication/reason for exam; i.e. extremities or head) *Use of iterative reconstruction technique DLP: 595 mGy-cm FINDINGS: PELVIS: Left renal parapelvic cysts are identified. Imaged loops of small and large bowel are not obstructed. There are scattered colonic diverticula. Normal caliber abdominal aorta. The uterus is retroverted. Stable 3.4 x 3.3 cm hypodensity in the left adnexa. This measures fluid attenuation. Findings likely represent a probable benign cyst. Recommend follow-up ultrasonography in 3-6 months. The urinary bladder is underdistended. No bulky pelvic lymphadenopathy. No free fluid in the pelvis. Findings suggestive of prior right inguinal hernia repair. Left inguinal hernia containing fat and a loop of nonobstructed small bowel. No surrounding inflammatory changes. No fluid in the hernia sac. The hernia sac measures 5.5 x 2.7 x 3.8 cm. The neck of the hernia measures 1.7 cm. OSSEOUS STRUCTURES: No destructive bone lesions. CT/CT pelvis wo IV con IMPRESSION: Left inguinal hernia containing fat and a loop of nonobstructed small bowel. No surrounding inflammatory changes. No fluid in the hernia sac. The hernia sac measures 5.5 x 2.7 x 3.8 cm. The neck of the hernia measures 1.7 cm. Stable 3.4 x 3.3 cm hypodensity in the left adnexa. Findings likely represent a probable benign cyst. Recommend follow-up ultrasonography in 3-6 months.
== END 2023-02-11 09:32 | disposition home or self-care (01) ==
LOC: HO.CT 09:31
PROVIDERS: PCP Internal Medicine; Visit Provider Surgery
DX: R10.32 Left lower quadrant pain (principal)
CPT/HCPCS: 72192

== ENCOUNTER 2023-02-15 15:47 | Outpatient (AMB) | payer MEDICARE, SELFPAY ==
--- NOTE | 2023-02-15 15:52 | A.OFFVIS_ITS ---
Intake Vital Signs 02/15/23 15:53 Height 5 ft 2 in Weight 166 lb 10.711 oz BMI 30.5 BP 150/66 H Blood Pressure Location Rt brachial Position Sitting Pulse 64 Pulse Source Pulse Oximeter Temp 97.6 F Temp Source Tympanic Pulse Oximetry (%) 97 Oxygen Delivery Method Room Air Intake Visit Reasons: Abdominal pain Allergies No Known Allergies Allergy (Verified 02/01/23 14:12) HPI HPI Comments History of Present Illness Details The patient is accompanied by her son today. She underwent open bilateral mesh repair of inguinal hernia 06/14/22. She reports that she took only Tylenol and is using ice packs intermittently. She never took any narcotics and reports that she feels fine, her bowels are working normally and she has no other complaint. She otherwise denies interval change. She states that a couple months ago, she started to developed pain in her left groin and noted swelling. She denies any signs or symptoms of obstruction or incarceration. Patient requested that her son service director quality systems for postoperative instructions recent and declined the interpretation system. [facility] Medical History Annual physical exam Hyperlipidemia Cough GERD (gastroesophageal reflux disease) HTN (hypertension) Surgical History History of bilateral inguinal hernia repair H/O colonoscopy Family History Father Dementia Mother No problems noted. Social History (Reviewed 02/01/23 @ 14:10 by Deon Espinoza MD, FACS, [facility]) Housing: House Alcohol intake: current Alcohol intake frequency: holidays/special occasions only Patient Tobacco Use Status: Never used Tobacco e-Cigarette/Vaping Use: Never Used Current occupational status: retired Cognitive needs: No Hearing needs: No Vision needs: No Physical Exam On exam, the patient is nontoxic She is having no respiratory difficulty The patient is examined standing and her right inguinal hernia repair is intact with no tenderness and no evidence of recurrence The patient has a bulge in her left groin, but given her habitus it is difficult to tell if it is a femoral hernia or failure of the mesh. Results Reviewed Results Reviewed: CT scan report & images demonstrate a recurrent left inguinal hernia containing small bowel that is non obstructed Assessment & Plan Assessment & Plan (1) Recurrent left inguinal hernia: Code(s): K40.91 - Unilateral inguinal hernia, without obstruction or gangrene, recurrent (2) HTN (hypertension): Code(s): I10 - Essential (primary) hypertension Plan The patient requested that her son service director quality systems for today's visit. Explained that on CT, she has a recurrent left inguinal hernia that has nonobstructing bowel and I explained that if this clinically worsens, she should contact me immediately. We discussed options of laparoscopic repair versus open repair. The patient was anxious with a description of a laparoscopic repair and requested an open repair. The inherent risks of bleeding, infection, hernia recurrence, mesh complications and activity restrictions were discussed with the patient apparently understood. Patient notes that she may have been overly aggressive postoperatively not of swimming and a caring heavy objects during travel. The importance of following activity restrictions to minimize risk of hernia recurrence was reviewed and apparently understood. Patient will void her urinary bladder sales promotion representative, receive Ancef, 2 g IV and have SCDs in place. We will schedule at her convenience or sooner if she is becoming more symptomatic. Coding Level of Care Code Est Pt Level 4 (98682) Diagnoses Recurrent left inguinal hernia K40.91 HTN (hypertension) I10
[2023-02-15 15:53] VITALS: BP 150/66; PULSE 64; TEMP 36.4; O2SAT 97; BMI 30.5
== END 2023-02-15 16:38 | disposition home or self-care (01) ==
PROVIDERS: PCP Internal Medicine; Visit Provider Surgery
DX: K40.91 Unilateral inguinal hernia, without obstruction or gangrene, recurrent (principal); I10 Essential (primary) hypertension
CPT/HCPCS: 99214

== ENCOUNTER → 2023-02-15 15:47 | Outpatient (BNVA) | payer MEDICARE, SELFPAY | PROVIDERS: PCP Internal Medicine; Visit Provider Surgery | DX: K40.91 Unilateral inguinal hernia, without obstruction or gangrene, recurrent (principal); I10 Essential (primary) hypertension | CPT/HCPCS: 99212 ==

== ENCOUNTER 2023-03-05 13:53 | Outpatient (AMB) | payer MEDICARE, SELFPAY ==
[2023-03-05 13:54] VITALS: BP 126/70; PULSE 61; O2SAT 96; BMI 30.2
--- NOTE | 2023-03-05 13:54 | MHC.PC.OV ---
Vital Signs 03/05/23 13:54 Height 5 ft 2 in Weight 165 lb BMI 30.2 BP 126/70 Blood Pressure Location Lt brachial Position Sitting Pulse 61 Pulse Source Pulse Oximeter Pulse Oximetry (%) 96 Oxygen Delivery Method Room Air Intake Visit Reasons: Follow up discuss some questions Intake Note: Pt is here today for a folow up visit on lab results. Pt states that she has some questions regarding her labs. Allergies No Known Allergies Allergy (Verified 03/05/23 13:58) Tobacco use date assessed: 03/05/23 Dental Screening Dental Screen Date: 03/05/23 Did you have a dental visit in the last 12 months?: Yes Did you have a dental problem in the last 6 months where you did not have access to dental care?: No Was dental information given to patient?: Patient has dentist HPI Follow up discuss some questions HPI Details Pt presents for follow-up on hypertension hyperlipidemia, controlled on current medications. Patient developed recurrent left inguinal hernia and will have a surgery. FORMERLY [facility], [facility]–1983 Medical History Annual physical exam Hyperlipidemia Cough GERD (gastroesophageal reflux disease) HTN (hypertension) Surgical History History of bilateral inguinal hernia repair H/O colonoscopy Family History Father Dementia Mother No problems noted. Social History (Reviewed 02/01/23 @ 14:10 by Deon Espinoza MD, [facility], [facility]) Housing: House Alcohol intake: current Alcohol intake frequency: holidays/special occasions only Patient Tobacco Use Status: Never used Tobacco e-Cigarette/Vaping Use: Never Used Current occupational status: retired Cognitive needs: No Hearing needs: No Vision needs: No Questionnaire Thrive Questionnaire Date Thrive assessed: 04/23/22 KAL-7 AMB Questionnaire KAL-7 Date KAL - 7 assessed: 04/23/22 Source: Developed by Drs. Tejas Miller, Tatum Reilly, Kayden Handley and colleagues, with an educational perico from [employer]. Review of Systems Const All systems reviewed & are unremarkable except as noted in HPI and below Reports no additional complaints Eyes Reports no additional complaints ENT Reports no additional complaints Card Reports no additional complaints Resp Reports no additional complaints GI Reports no additional complaints Reports no additional complaints Physical exam (Primary Care) Vital Signs: Last Vital Signs Pulse 61 03/05/23 13:54 BP 126/70 03/05/23 13:54 Pulse Ox 96 03/05/23 13:54 Oxygen Delivery Method Room Air 03/05/23 13:54 BMI result Body Mass Index 30.2 Tobacco/Smoking Status: Tobacco use Status Tobacco use date assessed 03/05/23 03/05/23 13:59 Patient Tobacco Use Status Never used Tobacco 03/05/23 13:59 e-Cigarette/Vaping Use Never Used 03/05/23 13:59 Thrive Assessment: Date of Thrive Assessment Date Thrive assessed 04/23/22 03/05/23 13:59 Const General: no acute distress HENMT Mouth: Normal oral and palatal mucosa present Resp Effort & Inspection: normal respiratory effort Auscultation: clear to auscultation bilaterally Cardio Rhythm: regular rhythm Heart sounds: S1 normal heart sound present and S2 normal heart sound present Assessment and Plan Assessment & Plan (1) HTN (hypertension): Code(s): I10 - Essential (primary) hypertension Plan: htn has been well controlled on current meds. Low-sodium diet regular physical activity discussed with the patient (2) Hyperlipidemia: Code(s): E78.5 - Hyperlipidemia, unspecified Plan: Continue statin (3) Recurrent left inguinal hernia: Code(s): K40.91 - Unilateral inguinal hernia, without obstruction or gangrene, recurrent Plan: Follow-up with the surgery Coding Level of Care Code Est Pt Level 4 (57823) Diagnoses HTN (hypertension) I10 Hyperlipidemia E78.5 Recurrent left inguinal hernia K40.91
== END 2023-03-05 14:48 | disposition home or self-care (01) ==
PROVIDERS: PCP Internal Medicine; Visit Provider Internal Medicine
DX: I10 Essential (primary) hypertension (principal); E78.5 Hyperlipidemia, unspecified; K40.91 Unilateral inguinal hernia, without obstruction or gangrene, recurrent
CPT/HCPCS: 99214

== ENCOUNTER 2023-03-13 11:28 | Day surgery (SDC) | payer MEDICARE, SELFPAY ==
--- NOTE | 2023-03-12 09:30 | HO.ANESPROP2 ---
Documented by User: Cadence Lynn NP 03/12/23 09:38 HPI - Anesthesia Eval Consult details Narrative: 77yo F for Left Recurrent Hernia Repair Inguinal Laparoscopic w/ProGrip Mesh s/p Bilateral Hernia Repair Inguinal, w/mesh 06/2022 with GA-LMA 3 PMFSH Active Problems Active Problems: All Active Problems (Updated 02/15/23 @ 16:36 by Deon Espinoza MD, FACS, [facility]) Recurrent left inguinal hernia (Acute) Chest pain (Acute) Anxiety (Acute) Bilateral inguinal hernia without obstruction or gangrene (Acute) Inguinal hernia (Acute) Vitamin D deficiency (Acute) RUQ abdominal pain (Acute) HTN (hypertension) (Acute) Annual physical exam (Acute) Hyperlipidemia (Acute) Cough (Acute) Past Medical History Medical History Annual physical exam Hyperlipidemia Cough GERD (gastroesophageal reflux disease) HTN (hypertension) Family History Family History Father Dementia Mother No problems noted. Family history of problems with anesthesia: No Surgical History Surgical History History of bilateral inguinal hernia repair H/O colonoscopy History of Problems with Anesthesia: No Social History Social History Housing: House Alcohol intake: current Alcohol intake frequency: a few times a month Patient Tobacco Use Status: Never used Tobacco e-Cigarette/Vaping Use: Never Used Are you DNR?: No Advance Directives: No Advance Directives Information Provided: Yes Nutrition Risks: No Nutritional Risk Current occupational status: retired Cognitive needs: No Hearing needs: No Vision needs: No Meds Allergies Allergy/AdvReac Type Severity Reaction Status Date / Time No Known Allergies Allergy Verified 03/05/23 13:58 Home Medications Medication Instructions Recorded Confirmed Last Taken Type calcium carbonate 600 mg calcium 600 mg PO DAILY 04/30/22 01/21/23 Unknown History (1,500 mg) tablet (Calcium) aspirin 81 mg PO 06/14/22 01/21/23 03/12/23 History Exam Pertinent Lab Results Pertinent Lab Results: Laboratory Tests 01/21/23 09:37 WBC 5.3 Hgb 14.3 Hct 43.9 Plt Count 259 Sodium 141 Potassium 4.5 Chloride 103 Carbon Dioxide 27 BUN 13 Creatinine 0.67 Narrative Narrative: EKG 05/2022 SB @ 50 Assessment and Plan Assessment Anesthesia Assessment: Chart Reviewed Final Anesthetic Review Family History of Problems with Anesthesia: No History of Problems with Anesthesia: No Documented by User: Jos Denis MD 03/13/23 12:16 PMFSH Past Medical History Medical History Annual physical exam Hyperlipidemia Cough GERD (gastroesophageal reflux disease) HTN (hypertension) Family History Family History Father Dementia Mother No problems noted. Surgical History Surgical History History of bilateral inguinal hernia repair H/O colonoscopy Social History Social History Housing: House Alcohol intake: current Alcohol intake frequency: a few times a month Patient Tobacco Use Status: Never used Tobacco e-Cigarette/Vaping Use: Never Used Are you DNR?: No Advance Directives: No Advance Directives Information Provided: Yes Nutrition Risks: No Nutritional Risk Current occupational status: retired Cognitive needs: No Hearing needs: No Vision needs: No Meds Allergies Allergy/AdvReac Type Severity Reaction Status Date / Time No Known Allergies Allergy Verified 03/05/23 13:58 Home Medications Medication Instructions Recorded Confirmed Last Taken Type calcium carbonate 600 mg calcium 600 mg PO DAILY 04/30/22 01/21/23 Unknown History (1,500 mg) tablet (Calcium) aspirin 81 mg PO 06/14/22 01/21/23 03/12/23 History Exam Airway Mallampati Class: II TM Dist: >3cm Neck ROM: Full Denture: Upper and Lower Heart: [id number] Lungs: cta b/l Assessment and Plan Assessment Anesthesia Assessment: Anesthesia Plan Discussed Final Anesthetic Review NPO: Yes ASA Class: II Final Preanesthetic Review: No Changes in Pt Med Stat, Meds/Allgs Chart Reviewed, Consent Obtained/Reviewed and Anes Risks/Benef Reviewed Patient Risk: Intermediate Procedure Risk: Intermediate Assessment/Block/Sedation in SS: Assess/Block/Sedation-SS Anesthetic Plan Anesthetic Plan: GA and Agree w/ Assess. and Plan Disposition: Standard PACU
--- NOTE | 2023-03-12 17:25 | MHC.SHP ---
Pre-Procedural Eval Section A Date of Service: 03/12/23 The patient is an INPATIENT: No The History & Physical has been completed within 30 days and I have reviewed it.: Yes Section B Chief Complaint: Unilateral inguinal hernia, without obstruction or Allergies: Allergies Allergy/AdvReac Type Severity Reaction Status Date / Time No Known Allergies Allergy Verified 03/05/23 13:58 Plan I have reviewed the history and physical and performed a pertinent physical examination on my patient. No changes have occurred unless specified. Time Spent With Patient Time: Total time managing care of this patient today ____ minutes.
[2023-03-13] VITALS (9 sets, daily range): BP systolic 130–146; BP diastolic 59–83; PULSE 50–68; RESP 14–18; TEMP 36.3–36.8; O2SAT 92–100; BMI 31.0
--- NOTE | 2023-03-13 11:41 | W.PM.OPN ---
Operative Note Operative Note Date of Service: 03/13/23 Narrative: Preop diagnosis: [Recurrent left inguinal hernia] Postop diagnosis: [Same, ventral adhesions secondary to an on recognized epigastric hernia containing viable omentum] Procedure: [Laparoscopic repair with mesh of a recurrent left inguinal hernia/CLIFTON; PITO x 12'] Surgeon: Deon Espinoza MD, FACS, FASMBS Assist: [Charlene Restrepo, RN] Anesthesia: [GET, Marcaine, 0.25% with epi] Estimated blood loss: [10cc] Specimen: [none] Intraoperative findings: [A direct recurrent left inguinal hernia, medial to the epigastric artery was noted containing viable bowel; an incidental epigastric hernia measuring approximately 3 x 4 cm containing viable omentum and contributing to intra-abdominal adhesions that required lysis was encountered. The right inguinal hernia repair site was intact with no evidence of recurrence.] Indications: [The patient is a 77-year-old Canadian speaking woman as her 1st language with limited Icelandic. She underwent bilateral open repair with mesh of inguinal hernias earlier this year and, after vacation, noted left groin pain. On CT, she has recurrent left inguinal hernia and attenuated fascia so I recommended a laparoscopic repair with mesh. Via chartered accountant, We discussed the options of laparoscopic and open inguinal hernia repair with mesh versus the option of continued observation or 2nd opinion. The patient's questions seemed to be satisfactorily answered. Activity restrictions, specifically the patient cannot lift more than 20 lb for the next 4 weeks, the need for light duty, the fact that the patient is not disabled and can perform light duty was all discussed and apparently understood. The options including continued observation versus operative repair and 2nd opinion were also discussed. The inherent risks to open inguinal hernia repair were discussed and options of laparoscopic or robotic/MIS repair were also discussed. These risks of hernia surgery include, but are not limited to: Bleeding, infection, hernia recurrence especially if weight gain or postoperative instructions are not followed, nerve entrapment, urinary retention, chronic pain, mesh complications that could require reoperation. The patient seemed to understand all of these options, had their questions answered and wanted to proceed. Activity restrictions were also discussed at length in the patient's questions seemed to be answered. ] Procedure: [The patient was identified in the preoperative holding area and with the help of Canadian interpretation, an interval H and P confirming no changes to health history or medications and confirming LEFT LAPAROSCOPIC INGUINAL HERNIA REPAIR WITH MESH as well as the inherent risks, benefits and options was reviewed. The reason to change from open to laparoscopic was discussed and the patient seemed understand and recalled the phone call that we previously had with the help of her son. Operative site was marked by myself, the patient voided her urinary bladder construction operations manager, was placed supine on the table with arms tucked, induced in general endotracheal anesthesia administered with excellent effect. An appropriate time-out was performed. SCDs were in place. These risks of hernia surgery include, but are not limited to: Bleeding, infection, hernia recurrence especially if weight gain or postoperative instructions are not followed, nerve entrapment, chronic pain, mesh complications that could require reoperation. The patient seemed to understand all of these options, had their questions answered and wanted to proceed. Activity restrictions were also reviewed with the patient and apparently understood. Procedure: The patient was identified in the preoperative holding area by myself and the operative site marked by me confirming a recurrent LEFT inguinal hernia. The patient voided her bladder construction operations manager, received Ancef, 2gm IV and sequential compression stockings were in place. The patient was again identified in the operating suite and placed supine on the table. See anesthesia notes for full details regarding anesthesia care and management. The patient was then widely prepped and draped in the usual manner using chlorhexidine. An appropriate time-out was performed. The patient's abdomen was accessed through a supraumbilical transverse incision using preemptive local. Veress needle was placed without incident, an appropriate drop test performed and used to obtain a pneumoperitoneum of 15 mmHg using carbon dioxide. Opening pressure was 4 mmHg. The abdomen was then accessed with a 5 mm/30 degree laparoscopic for a 5 mm optical trocar without incident in the right anterolateral abdomen using preemptive analgesia at the level of the umbilicus. I then inspected for evidence of injury from either the Veress needle or trocar and found none, but found omentum adhesed from the umbilicus up to the falciform ligament. This required placement of a right lower quadrant 5 mm trocar and LigaSure to provide dissection for lysis of adhesions for roughly 12 minutes to allow placement of a 12 mm supraumbilical midline trocar and left anterolateral abdomen 5 mm trocar. The patient was positioned in gentle Trendelenburg position and laparoscopy confirmed a direct left inguinal hernia and ipsilateral peritoneal & transversalis fascia incision was made using a grasper and Endo scissors. Hemostasis was obtained with electrocautery. Dissection was then carried medially to Cassius's ligament. Next, laparoscopic graspers and scissors were used to developed Retzius & Bogros spaces and dissection carried laterally taking care to avoid nerve injury. The direct hernia sac was carefully dissected using electrocautery for hemostasis. Once the sac was reduced, dissection avoiding the triangle of pain and triangle of Doom was carried inferiorly and posteriorly to allow placement of a 10 x 15 cm Covidien ProGrip mesh. It was tacked using absorbable tacks to Cassius's ligament. The abdomen was then deflated to 9 mmHg in the field inspected for hemostasis. Local was infiltrated into the operative field and the peritoneal flap closed with absorbable tacks. The abdomen was deflated, the bed return to neutral and trocars removed. The supraumbilical fascia was closed 0 Polysorb suture and skin was closed with 4-0 Monocryl subcuticular sutures. The abdomen was then washed and dried, and Mastisol and Steri-Strips applied followed by Band-Aids. Patient tolerated the procedure well was sent to the recovery area in stable condition. All sponge and instrument counts were correct x2. At the patient's request, I spoke with her daughter and son in the waiting room of the procedure including the a symptomatic ventral hernia. The option of continued observation given that she is asymptomatic was recommended. Instructions regarding activity and pain management were reviewed. Questions were answered.]
--- NOTE | 2023-03-13 11:59 | PC.NURSE ---
dr tinajero aware took asa yesterday
[2023-03-13] MEDS: Lactated Ringers 1,000 ML 100 ML IVCONT (12:06)
[2023-03-13] MEDS: oxyCODONE HCl Immed Release 5 MG TABLET PO (15:15)
== END 2023-03-13 16:51 | disposition home or self-care (01) ==
LOC: HO.SSS 11:30
PROVIDERS: PCP Internal Medicine; Visit Provider Surgery
PROC: (CPT 49650; principal; 2023-03-13 13:00)
DX: K40.91 Unilateral inguinal hernia, without obstruction or gangrene, recurrent (principal); K66.0 Peritoneal adhesions (postprocedural) (postinfection); I10 Essential (primary) hypertension; E78.5 Hyperlipidemia, unspecified; K21.9 Gastro-esophageal reflux disease without esophagitis; Z79.82 Long term (current) use of aspirin; Z79.899 Other long term (current) drug therapy; Z98.890 Other specified postprocedural states
CPT/HCPCS: 49651; C1781; J0690; J1100; J2250; J2405; J2704; J3010

== ENCOUNTER → 2023-03-13 11:28 | Outpatient (BNV) | payer MEDICARE, SELFPAY | PROVIDERS: PCP Internal Medicine; Visit Provider Surgery | DX: K40.91 Unilateral inguinal hernia, without obstruction or gangrene, recurrent (principal) | CPT/HCPCS: 49521 ==

== ENCOUNTER 2023-03-19 09:57 | Outpatient (AMB) | payer MEDICARE, SELFPAY ==
--- NOTE | 2023-03-19 10:04 | A.OFFVIS_ITS ---
Intake Vital Signs 03/19/23 10:17 Height 5 ft 2 in Weight 166 lb 10.711 oz BMI 30.5 BP 138/62 Blood Pressure Location Rt brachial Position Sitting Pulse 65 Pulse Source Pulse Oximeter Temp 96.5 F L Temp Source Tympanic Pulse Oximetry (%) 99 Oxygen Delivery Method Room Air Intake Visit Reasons: S/P laparoscopic recurrent LIH w/PROGRIP mesh Operator Electronic Warfare Required: Yes Operator Electronic Warfare Name: desmond Shah Information Interpreted: clinical only Farm Contractor Buyer: Farm Contractor Buyer Present Allergies No Known Allergies Allergy (Verified 03/19/23 10:18) Medication List - Last Reconciled 03/19/23 by Deon Espinoza MD, FACS, FASMBS [aspirin 81 mg PO] calcium carbonate (Calcium) 600 mg PO DAILY fluticasone propionate 50 mcg/actuation (Flonase Allergy Relief) 1 spray intranasal DAILY lisinopril-hydrochlorothiazide 20-12.5 mg 1 1/2 orally daily; lorazepam 0.5 mg PO DAILY PRN oxycodone 5 mg PO Q4H PRN pravastatin 20 mg PO DAILY HPI HPI Comments History of Present Illness Details The patient is seen in follow-up after a laparoscopic repair with ProGrip mesh of a recurrent left inguinal hernia. Her [place] is good enough that we could communicate but she had some questions that she wanted her son, Pablo to interpret. She has minimal pain, her bowels are working well, she has no chest pain, nausea, vomiting. Overall, she is pleased with the results. She is interested in driving and states that she only took 2 narcotic pills last week after surgery. She feels safe to drive [facility] Medical History Annual physical exam Hyperlipidemia Cough GERD (gastroesophageal reflux disease) HTN (hypertension) Surgical History (Updated 03/15/23 @ 09:21 by Kala Daniels CMA) Hx of left inguinal hernia repair History of bilateral inguinal hernia repair H/O colonoscopy Family History Father Dementia Mother No problems noted. Social History Housing: House Alcohol intake: current Alcohol intake frequency: a few times a month Comment: COUNTS CORRECT Patient Tobacco Use Status: Never used Tobacco e-Cigarette/Vaping Use: Never Used Current occupational status: retired Cognitive needs: No Hearing needs: No Vision needs: No Review of Systems Const All systems reviewed & are unremarkable except as noted in HPI and below Physical Exam Vital Signs: Last Vital Signs Temp 96.5 F L 03/19/23 10:17 Pulse 65 03/19/23 10:17 BP 138/62 03/19/23 10:17 Pulse Ox 99 03/19/23 10:17 Oxygen Delivery Method Room Air 03/19/23 10:17 BMI result Body Mass Index 30.5 On exam, she is afebrile and nontoxic She is having no respiratory difficulty Abdomen is obese but soft with no peritoneal sign. Expected bruising is present and there is no evidence of infection. On standing with Valsalva, there is no evidence of recurrent left inguinal hernia Assessment & Plan Assessment & Plan (1) Recurrent left inguinal hernia: Code(s): K40.91 - Unilateral inguinal hernia, without obstruction or gangrene, recurrent Plan Instructions regarding diet and activity were reviewed and apparently understood. Patient will refrain from lifting more than 20 lb until the and of April and will refrain from swimming until that time. Her questions seemed to be satisfactorily answered. She is discharged from my care at this time Coding Level of Care Code Global (08024) Diagnoses Recurrent left inguinal hernia K40.91
[2023-03-19 10:17] VITALS: BP 138/62; PULSE 65; TEMP 35.8; O2SAT 99; BMI 30.5
== END 2023-03-19 10:18 | disposition home or self-care (01) ==
PROVIDERS: PCP Internal Medicine; Visit Provider Surgery
DX: K40.91 Unilateral inguinal hernia, without obstruction or gangrene, recurrent (principal)
CPT/HCPCS: 99024

== ENCOUNTER → 2023-03-19 09:57 | Outpatient (BNVA) | payer MEDICARE, SELFPAY | PROVIDERS: PCP Internal Medicine; Visit Provider Surgery | DX: Z48.815 Encounter for surgical aftercare following surgery on the digestive system (principal); Z87.19 Personal history of other diseases of the digestive system | CPT/HCPCS: 99212 ==

== ENCOUNTER 2023-07-22 09:59 | Outpatient (REF) | payer MEDICARE, SELFPAY ==
[2023-07-22 13:37] LABS: MANUAL DIFF FLAG NO
[2023-07-22 13:48] LABS: Basophils Percent Auto 0.7 % (0-2); Eosinophils Absolute Auto 0.1 X10*3/uL (0.0-0.4); Eosinophils Percent Auto 3.2 % (0-4); Hematocrit 41.8 % (37.0-47.0); Hemoglobin 13.6 g/dl (12.0-16.0); Imm Gran Abs Auto 0.01 X10*3/uL (0.00-0.03); Imm Gran Pct Auto 0.2 % (0.0-0.4); Lymphocytes Absolute Auto 1.2 X10*3/uL (1.2-4.9); Lymphocytes Percent Auto 30.3 % (20-40); Mean Corpuscular HGB Conc 32.5 g/dl (31.0-35.0); Mean Corpuscular Hemoglobin 28.9 pg (27.0-33.0); Mean Corpuscular Volume 88.9 fL (80.0-98.0); Mean Platelet Volume 10.4 fL (9.4-12.3); Monocytes Absolute Auto 0.7 X10*3/uL (0.1-1.2); Monocytes Percent Auto 16.9 % (2-11); Neutrophils Percent Auto 48.7 % (45-73); Platelet Count 241 X10*3/uL (160-400); Red Cell Distribution Width 13.9 % (11.0-16.0)
[2023-07-22 14:07] LABS: Alanine Aminotransferase 14 U/L (0-31); Alkaline Phosphatase 66 U/L (39-117); Anion Gap 13 (12-20); Aspartate Amino Transferase 18 U/L (5-31); Bilirubin Total 0.4 mg/dL (0.0-1.0); Blood Urea Nitrogen 15 mg/dL (9-16); Calcium 9.5 mg/dL (8.4-10.2); Carbon Dioxide 27 mmol/L (22-29); Chloride 106 mmol/L (96-108); Cholesterol 188 mg/dL (<200); Estimated Glomerular Filt Rate > 60; Glucose Fasting 90 mg/dL (60-99); HDL Cholesterol 70 mg/dL (>40); LDL Cholesterol Calculated 108 mg/dL (<100); Potassium 4.7 mmol/L (3.3-5.1); Sodium 141 mmol/L (135-145); Triglycerides 51 mg/dL (<150)
== END 2023-07-22 10:00 | disposition home or self-care (01) ==
LOC: HO.HMGCLDS 09:59
PROVIDERS: PCP Internal Medicine; Visit Provider Internal Medicine
DX: I10 Essential (primary) hypertension (principal); E78.5 Hyperlipidemia, unspecified
CPT/HCPCS: 36415; 80053; 80061; 85025

== ENCOUNTER 2023-07-23 11:00 | Outpatient (AMB) | payer MEDICARE, SELFPAY ==
[2023-07-23 11:03] VITALS: BP 106/64; PULSE 72; O2SAT 95; BMI 29.6
--- NOTE | 2023-07-23 11:03 | A.OFFPC_ITS ---
Vital Signs 07/23/23 11:03 Height 5 ft 2 in Weight 162 lb BMI 29.6 BP 106/64 Blood Pressure Location Rt brachial Position Sitting Pulse 72 Pulse Source Pulse Oximeter Pulse Oximetry (%) 95 Oxygen Delivery Method Room Air Intake Visit Reasons: 6 month follow up Intake Note: Pt is here today for 6 months follow up visit. Allergies No Known Allergies Allergy (Verified 07/23/23 11:09) Medication List - Last Reconciled 07/23/23 by Leah Oliva MD [aspirin 81 mg PO] calcium carbonate (Calcium) 600 mg PO DAILY fluticasone propionate 50 mcg/actuation (Flonase Allergy Relief) 1 spray intranasal DAILY lisinopril-hydrochlorothiazide 20-12.5 mg 1 1/2 orally daily; lorazepam 0.5 mg PO DAILY PRN pravastatin 20 mg PO DAILY Tobacco use date assessed: 07/23/23 Fall risk assessment: No Falls in past year Dental Screening Dental Screen Date: 07/23/23 Did you have a dental visit in the last 12 months?: Yes Did you have a dental problem in the last 6 months where you did not have access to dental care?: No Was dental information given to patient?: Patient has dentist HPI 6 month follow up HPI Details Patient presents for the follow-up on hypertension hyperlipidemia stable on current medications [facility] Medical History (Updated 07/23/23 @ 11:50 by Leah Oliva MD) Annual physical exam Hyperlipidemia Cough GERD (gastroesophageal reflux disease) HTN (hypertension) Surgical History Hx of left inguinal hernia repair History of bilateral inguinal hernia repair H/O colonoscopy Family History Father Dementia Mother No problems noted. Social History Housing: House Alcohol intake: current Alcohol intake frequency: a few times a month Comment: COUNTS CORRECT Patient Tobacco Use Status: Never used Tobacco e-Cigarette/Vaping Use: Never Used service: No Current occupational status: retired Cognitive needs: No Hearing needs: No Vision needs: No Questionnaire PHQ-9 Over the last 2 weeks, how often have you been bothered by any of the following problems? 1. Little interest or pleasure in doing things: not at all 2. Feeling down, depressed, or hopeless: not at all 3. Trouble falling or staying asleep, or sleeping too much: not at all 4. Feeling tired or having little energy: not at all 5. Poor appetite or overeating: not at all 6. Feeling bad about yourself - or that you are a failure or have let yourself or your family down: not at all 7. Trouble concentrating on things, such as reading the newspaper or watching television: not at all 8. Moving or speaking so slowly that other people could have noticed. Or the opposite - being so fidgety or restless that you have been moving around a lot more than usual: not at all 9. Thoughts that you would be better off or of hurting yourself in some way: not at all Total score: 0 Depression Screening Interpretation: Negative Depression Screening Done: Yes Source: Developed by Drs. Tejas Miller, Tatum Reilly, Kayden Handley and colleagues, with an educational perico from [employer]. Thrive Questionnaire Date Thrive assessed: 07/23/23 I am a: Patient What is your living situation today?: I have a steady place to live Within the past 12 months, did the food you bought not last and you didn't have the money to get more?: Never true Within the past 12 months, did you worry whether your food would run out before you got money to buy more?: Never true Do you have trouble paying for medicines?: No Do you have trouble getting transportation to medical appointments?: No Do you have trouble paying your heating and electricity bill?: No Do you have trouble taking care of your child, family member or friend?: No Do you have trouble with day-to-day activities such as bathing, preparing meals, shopping, managing finances, etc.?: No Are you currently unemployed and looking for a job?: No Are you interested in more education?: No Please select the resources that you would like help with: None THRIVE Score: 0 AUDIT C Alcohol Use Questionnaire (AUDIT-C) 1. How often do you have a drink containing alcohol?: Never 3. How often do you have six or more drinks on one occasion?: Never Total Score: 0 KAL-7 AMB Questionnaire KAL-7 Date KAL - 7 assessed: 07/23/23 Feeling nervous, anxious, or on edge: 0 = Not at all Not being able to stop or control worryin = Not at all Worrying too much about different things: 0 = Not at all Trouble relaxin = Not at all Being so restless that it is hard to sit still: 0 = Not at all Becoming easily annoyed or irritable: 0 = Not at all Feeling afraid as if something awful might happen: 0 = Not at all Total KAL-7 score (0-4 normal; 5-9 mild; 10-14 moderate; 15-21 severe): 0 Source: Developed by Drs. Tejas Miller, Tatum Reilly, Kayden Handley and colleagues, with an educational perico from [employer]. Review of Systems Const All systems reviewed & are unremarkable except as noted in HPI and below Reports no additional complaints Eyes Reports no additional complaints ENT Reports no additional complaints Card Reports no additional complaints Resp Reports no additional complaints GI Reports no additional complaints Reports no additional complaints Physical exam (Primary Care) Vital Signs: Last Vital Signs Pulse 72 07/23/23 11:03 BP 106/64 07/23/23 11:03 Pulse Ox 95 07/23/23 11:03 Oxygen Delivery Method Room Air 07/23/23 11:03 BMI result Body Mass Index 29.6 Tobacco/Smoking Status: Tobacco use Status Tobacco use date assessed 07/23/23 07/23/23 11:11 Patient Tobacco Use Status Never used Tobacco 07/23/23 11:11 e-Cigarette/Vaping Use Never Used 07/23/23 11:03 PHQ-9: PHQ-9 Score PHQ-9: Total score 0 07/23/23 11:11 Depression Screening Interpretation: Negative Thrive Assessment: Date of Thrive Assessment Date Thrive assessed 07/23/23 07/23/23 11:11 Const General: no acute distress Neck Neck: Yes supple Resp Auscultation: clear to auscultation bilaterally Cardio Rhythm: regular rhythm Heart sounds: S1 normal heart sound present and S2 normal heart sound present GI Inspection: Yes normal to inspection Assessment and Plan Assessment & Plan (1) Postmenopausal: Comment: Hx of osteoporosis Code(s): Z78.0 - Asymptomatic menopausal state Plan: check DEXA, continue vitamin-D supplement and regular exercise (2) HTN (hypertension): Code(s): I10 - Essential (primary) hypertension Plan: Continue medications Goals: BP control Barriers: None known (3) Hyperlipidemia: Code(s): E78.5 - Hyperlipidemia, unspecified Plan: Continue statin Orders: Orders XR DEXA axial skeleton 12/09/23 Z78.0 - Asymptomatic menopausal state Medications: Refilled lisinopril-hydrochlorothiazide 20-12.5 mg 1 1/2 orally daily; 135 tabs 3RF pravastatin 20 mg PO DAILY 90 tabs 3RF E78.5 - Hyperlipidemia, unspecified Coding Level of Care Code Est Pt Level 4 (19146) Diagnoses Postmenopausal Z78.0 HTN (hypertension) I10 Hyperlipidemia E78.5
== END 2023-07-23 11:53 | disposition home or self-care (01) ==
PROVIDERS: PCP Internal Medicine; Visit Provider Internal Medicine
DX: Z78.0 Asymptomatic menopausal state (principal); I10 Essential (primary) hypertension; E78.5 Hyperlipidemia, unspecified
CPT/HCPCS: 99214

== ENCOUNTER 2023-11-20 09:53 | Outpatient (AMB) | payer MEDICARE, SELFPAY ==
[2023-11-20 09:56] VITALS: BP 139/80; PULSE 54; O2SAT 96; BMI 30.9
--- NOTE | 2023-11-20 09:56 | A.OFFPC_ITS ---
Vital Signs 11/20/23 09:56 Height 5 ft 2 in Weight 169 lb BMI 30.9 BP 139/80 Blood Pressure Location Rt brachial Position Sitting Pulse 54 Pulse Source Pulse Oximeter Pulse Oximetry (%) 96 Oxygen Delivery Method Room Air Intake Visit Reasons: Elevated BP Intake Note: Pt is here today for a sick visit. Pt c/o elevated BP. Allergies No Known Allergies Allergy (Verified 11/20/23 09:59) Medication List - Last Reconciled 11/20/23 by Leah Oliva MD [aspirin 81 mg PO] calcium carbonate (Calcium 600) 600 mg PO DAILY fluticasone propionate 50 mcg/actuation (Flonase Allergy Relief) 1 spray intranasal DAILY lisinopril-hydrochlorothiazide 20-12.5 mg 1 1/2 orally daily; lorazepam 0.5 mg PO DAILY PRN omeprazole 20 mg PO DAILY pravastatin 20 mg PO DAILY Tobacco use date assessed: 11/20/23 Fall risk assessment: No Falls in past year Last assessed Fall Risk: 11/20/23 Dental Screening Dental Screen Date: 07/23/23 HPI Elevated BP HPI Details Pt presents for f/u HTN. Pt reports elevated blood pressure while on vacation in [place] and has been taking a double dose of lisinopril with hydrochlorothiazide on and off. Patient complains of the heartburn after eating relieved with [id number] Prilosec. She denies nose nausea vomiting change in bowel habits, hematochezia or melena. [facility] Medical History (Updated 11/20/23 @ 10:52 by Leah Oliva MD) Annual physical exam Hyperlipidemia Cough GERD (gastroesophageal reflux disease) HTN (hypertension) Surgical History Hx of left inguinal hernia repair History of bilateral inguinal hernia repair H/O colonoscopy Family History Father Dementia Mother No problems noted. Social History Housing: House Alcohol intake: current Alcohol intake frequency: a few times a month Comment: COUNTS CORRECT Patient Tobacco Use Status: Never used Tobacco e-Cigarette/Vaping Use: Never Used service: No Current occupational status: retired Cognitive needs: No Hearing needs: No Vision needs: No Questionnaire PHQ-9 Over the last 2 weeks, how often have you been bothered by any of the following problems? 1. Little interest or pleasure in doing things: several days 2. Feeling down, depressed, or hopeless: not at all 3. Trouble falling or staying asleep, or sleeping too much: not at all 4. Feeling tired or having little energy: several days 5. Poor appetite or overeating: more than half the days 6. Feeling bad about yourself - or that you are a failure or have let yourself or your family down: not at all 7. Trouble concentrating on things, such as reading the newspaper or watching television: more than half the days 8. Moving or speaking so slowly that other people could have noticed. Or the opposite - being so fidgety or restless that you have been moving around a lot more than usual: several days 9. Thoughts that you would be better off or of hurting yourself in some way: not at all Total score: 7 Depression Screening Interpretation: Negative Depression Screening Done: Yes 90578 - PHQ-9 Billing: Yes Source: Developed by Drs. Tejas Miller, Tatum Reilly, Kayden Handley and colleagues, with an educational perico from [employer]. Thrive Questionnaire Date Thrive assessed: 11/20/23 I am a: Patient What is your living situation today?: I have a steady place to live Within the past 12 months, did the food you bought not last and you didn't have the money to get more?: Never true Within the past 12 months, did you worry whether your food would run out before you got money to buy more?: Never true Do you have trouble paying for medicines?: No Do you have trouble getting transportation to medical appointments?: No Do you have trouble paying your heating and electricity bill?: No Do you have trouble taking care of your child, family member or friend?: No Do you have trouble with day-to-day activities such as bathing, preparing meals, shopping, managing finances, etc.?: No Are you currently unemployed and looking for a job?: No Are you interested in more education?: No Please select the resources that you would like help with: None Currently or been in a relationship where the following occur: No concerns reported THRIVE Score: 0 AUDIT C Alcohol Use Questionnaire (AUDIT-C) 1. How often do you have a drink containing alcohol?: Monthly or less 2. How many drinks containing alcohol do you have on a typical day when you are drinking?: 1 or 2 3. How often do you have six or more drinks on one occasion?: Never Total Score: 1 KAL-7 AMB Questionnaire KAL-7 Date KAL - 7 assessed: 11/20/23 Feeling nervous, anxious, or on edge: 1 = Several days Not being able to stop or control worryin = Several days Worrying too much about different things: 1 = Several days Trouble relaxin = Several days Being so restless that it is hard to sit still: 1 = Several days Becoming easily annoyed or irritable: 1 = Several days Feeling afraid as if something awful might happen: 0 = Not at all Total KAL-7 score (0-4 normal; 5-9 mild; 10-14 moderate; 15-21 severe): 6 Source: Developed by Drs. Tejas Miller, Tatum Reilly, Kayden Handley and colleagues, with an educational perico from [employer]. KAL-7 Assessment Billing KAL-7 Assessment Tool: KAL-7 Assessment 18977 Review of Systems Const All systems reviewed & are unremarkable except as noted in HPI and below ENT Reports no additional complaints Card Reports no additional complaints Resp Reports no additional complaints GI Reports no additional complaints Reports no additional complaints Physical exam (Primary Care) Vital Signs: Last Vital Signs Pulse 54 11/20/23 09:56 Pulse Ox 96 11/20/23 09:56 Oxygen Delivery Method Room Air 11/20/23 09:56 BMI result Body Mass Index 30.9 Tobacco/Smoking Status: Tobacco use Status Tobacco use date assessed 11/20/23 11/20/23 10:03 Patient Tobacco Use Status Never used Tobacco 11/20/23 10:03 e-Cigarette/Vaping Use Never Used 11/20/23 09:56 PHQ-9: PHQ-9 Score PHQ-9: Total score 7 11/20/23 10:03 Depression Screening Interpretation: Negative Thrive Assessment: Date of Thrive Assessment Date Thrive assessed 11/20/23 11/20/23 10:03 Currently or been in a relationship where the following occur: No concerns reported Const General: no acute distress HENMT Head: Yes normal to inspection Resp Effort & Inspection: normal respiratory effort Auscultation: clear to auscultation bilaterally Cardio Rhythm: regular rhythm Heart sounds: S1 normal heart sound present and S2 normal heart sound present GI Inspection: Yes normal to inspection Palpation (GI): Soft to palpation Percussion: Yes normal to percussion Auscultation: normal bowel sounds Assessment and Plan Assessment & Plan (1) HTN (hypertension): Code(s): I10 - Essential (primary) hypertension Plan: Change lisinopril with hydrochlorothiazide to 40 mg of lisinopril and Dyazide 37/25 mg. Patient will return for nurse visit for blood pressure check in 1 week and BMP will be checked then. Follow-up in 1 month (2) GERD (gastroesophageal reflux disease): Code(s): K21.9 - Gastro-esophageal reflux disease without esophagitis Plan: Anti GERD diet discussed, omeprazole 20 mg for 1 month is prescribed Orders: Orders Basic Metabolic Panel 1 Week I10 - Essential (primary) hypertension Medications: New lisinopril 40 mg PO DAILY 90 tabs 0RF triamterene-hydrochlorothiazid 37.5-25 mg 1 tab PO DAILY 30 tabs 1RF omeprazole 20 mg PO DAILY 30 caps 2RF Discontinued lisinopril-hydrochlorothiazide 20-12.5 mg Discontinued Reason: Doctor's Order 1 1/2 orally daily; 135 tabs 3RF Coding Level of Care Code Est Pt Level 3 (88059) Diagnoses HTN (hypertension) I10 GERD (gastroesophageal reflux disease) K21.9 Additional Codes KAL-7 Assessment Billing - KAL-7 Assessment Tool: KAL-7 Assessment 18836 ([id number])
== END 2023-11-20 10:43 | disposition home or self-care (01) ==
PROVIDERS: PCP Internal Medicine; Visit Provider Internal Medicine
DX: I10 Essential (primary) hypertension (principal); K21.9 Gastro-esophageal reflux disease without esophagitis
CPT/HCPCS: 99213

== ENCOUNTER 2023-11-27 10:54 | Outpatient (REF) | payer MEDICARE, SELFPAY ==
[2023-11-27 13:57] LABS: Anion Gap 12 (12-20); Blood Urea Nitrogen 15 mg/dL (9-16); Calcium 10.1 mg/dL (8.4-10.2); Carbon Dioxide 28 mmol/L (22-29); Chloride 105 mmol/L (96-108); Estimated Glomerular Filt Rate > 60; Glucose Random 96 mg/dL (60-115); Potassium 4.8 mmol/L (3.3-5.1); Sodium 140 mmol/L (135-145)
== END 2023-11-27 10:55 | disposition home or self-care (01) ==
LOC: HO.HMGCLDS 10:54
PROVIDERS: PCP Internal Medicine; Visit Provider Internal Medicine
DX: I10 Essential (primary) hypertension (principal)
CPT/HCPCS: 36415; 80048

== ENCOUNTER 2023-11-27 11:14 | Outpatient (AMB) | payer MEDICARE, SELFPAY ==
[2023-11-27 11:16] VITALS: BP 106/60; PULSE 65; O2SAT 97; BMI 29.6
--- NOTE | 2023-11-27 11:16 | MHC.PC.OV ---
Vital Signs 11/27/23 11:16 11/27/23 11:22 11/27/23 11:24 Height 5 ft 2 in Weight 162 lb BMI 29.6 BP 106/60 134/79 120/70 Blood Pressure Location Rt brachial Lt radial Rt radial Position Sitting Sitting Sitting Pulse 65 Pulse Source Pulse Oximeter Pulse Oximetry (%) 97 Oxygen Delivery Method Room Air Intake Visit Reasons: 1 week f/u Intake Note: Pt is here today for 1 week follow up on ankle swelling. Allergies No Known Allergies Allergy (Verified 11/20/23 09:59) Tobacco use date assessed: 11/20/23 Dental Screening Dental Screen Date: 07/23/23 HPI 1 week f/u HPI Details Patient presents for the follow-up of hypertension. She has been tolerating medications well but reports intermittent leg cramps. Patient denies headache shortness of breath chest pains. [facility] Medical History (Updated 11/27/23 @ 11:56 by Leah Oliva MD) Annual physical exam Hyperlipidemia Cough GERD (gastroesophageal reflux disease) HTN (hypertension) Surgical History Hx of left inguinal hernia repair History of bilateral inguinal hernia repair H/O colonoscopy Family History Father Dementia Mother No problems noted. Social History Housing: House Alcohol intake: current Alcohol intake frequency: a few times a month Comment: COUNTS CORRECT Patient Tobacco Use Status: Never used Tobacco e-Cigarette/Vaping Use: Never Used service: No Current occupational status: retired Cognitive needs: No Hearing needs: No Vision needs: No Questionnaire PHQ-9 Over the last 2 weeks, how often have you been bothered by any of the following problems? 1. Little interest or pleasure in doing things: several days 2. Feeling down, depressed, or hopeless: not at all 3. Trouble falling or staying asleep, or sleeping too much: not at all 4. Feeling tired or having little energy: several days 5. Poor appetite or overeating: more than half the days 6. Feeling bad about yourself - or that you are a failure or have let yourself or your family down: not at all 7. Trouble concentrating on things, such as reading the newspaper or watching television: more than half the days 8. Moving or speaking so slowly that other people could have noticed. Or the opposite - being so fidgety or restless that you have been moving around a lot more than usual: several days 9. Thoughts that you would be better off or of hurting yourself in some way: not at all Total score: 7 Source: Developed by Drs. Tejas Miller, Tatum Reilly, Kayden Handley and colleagues, with an educational perico from [employer]. Thrive Questionnaire Date Thrive assessed: 11/20/23 I am a: Patient What is your living situation today?: I have a steady place to live Within the past 12 months, did the food you bought not last and you didn't have the money to get more?: Never true Within the past 12 months, did you worry whether your food would run out before you got money to buy more?: Never true Do you have trouble paying for medicines?: No Do you have trouble getting transportation to medical appointments?: No Do you have trouble paying your heating and electricity bill?: No Do you have trouble taking care of your child, family member or friend?: No Do you have trouble with day-to-day activities such as bathing, preparing meals, shopping, managing finances, etc.?: No Are you currently unemployed and looking for a job?: No Are you interested in more education?: No Please select the resources that you would like help with: None Currently or been in a relationship where the following occur: No concerns reported THRIVE Score: 0 AUDIT C Alcohol Use Questionnaire (AUDIT-C) 1. How often do you have a drink containing alcohol?: Monthly or less 2. How many drinks containing alcohol do you have on a typical day when you are drinking?: 1 or 2 3. How often do you have six or more drinks on one occasion?: Never Total Score: 1 KAL-7 AMB Questionnaire KAL-7 Date KAL - 7 assessed: 11/20/23 Feeling nervous, anxious, or on edge: 1 = Several days Not being able to stop or control worryin = Several days Worrying too much about different things: 1 = Several days Trouble relaxin = Several days Being so restless that it is hard to sit still: 1 = Several days Becoming easily annoyed or irritable: 1 = Several days Feeling afraid as if something awful might happen: 0 = Not at all Total KAL-7 score (0-4 normal; 5-9 mild; 10-14 moderate; 15-21 severe): 6 Source: Developed by Drs. Tejas Miller, Tatum Reilly, Kayden Handley and colleagues, with an educational perico from [employer]. Review of Systems Const All systems reviewed & are unremarkable except as noted in HPI and below Card Reports no additional complaints Resp Reports no additional complaints GI Reports no additional complaints Physical exam (Primary Care) Vital Signs: Last Vital Signs Pulse 65 11/27/23 11:16 BP 145/70 H 11/27/23 11:24 Pulse Ox 97 11/27/23 11:16 Oxygen Delivery Method Room Air 11/27/23 11:16 BMI result Body Mass Index 29.6 Tobacco/Smoking Status: Tobacco use Status Tobacco use date assessed 11/20/23 11/27/23 11:24 Patient Tobacco Use Status Never used Tobacco 11/27/23 11:24 e-Cigarette/Vaping Use Never Used 11/27/23 11:24 PHQ-9: PHQ-9 Score PHQ-9: Total score 7 11/27/23 11:24 Thrive Assessment: Date of Thrive Assessment Date Thrive assessed 11/20/23 11/27/23 11:24 Currently or been in a relationship where the following occur: No concerns reported Const General: no acute distress Neck Neck: Yes supple Resp Effort & Inspection: normal respiratory effort Auscultation: clear to auscultation bilaterally Cardio Rhythm: regular rhythm Heart sounds: S1 normal heart sound present and S2 normal heart sound present Assessment and Plan Assessment & Plan (1) HTN (hypertension): Code(s): I10 - Essential (primary) hypertension Plan: Continue current medications check basic metabolic panel (2) Left ovarian cyst: Comment: Pelvic CT L ovarian cyst 3.4 cm 02/2023 Code(s): N83.202 - Unspecified ovarian cyst, left side Plan: Repeat pelvic and renal ultrasound Orders: Orders US pelvic and transvaginal Today I10 - Essential (primary) hypertension, N83.202 - Unspecified ovarian cyst, left side US renal BI Today I10 - Essential (primary) hypertension Coding Level of Care Code Est Pt Level 3 (88276) Diagnoses HTN (hypertension) I10 Left ovarian cyst N83.202
[2023-11-27 11:22] VITALS: BP 134/79
[2023-11-27 11:24] VITALS: BP 120/70
== END 2023-11-27 11:57 | disposition home or self-care (01) ==
PROVIDERS: PCP Internal Medicine; Visit Provider Internal Medicine
DX: I10 Essential (primary) hypertension (principal); N83.202 Unspecified ovarian cyst, left side
CPT/HCPCS: 99213

== ENCOUNTER 2023-12-24 13:58 | Outpatient (REF) | payer MEDICARE, SELFPAY ==
--- NOTE | ~2023-12-24 | US_ITS ---
EXAMINATION: US PELVIS, TRANSABDOMINAL AND TRANSVAGINAL CLINICAL INFORMATION: Ovarian cyst. COMPARISON: CT pelvis 02/11/2023: Stable 3.4 x 3.3 cm hypodensity in the left adnexa. Findings likely represent a probable benign cyst. Recommend follow-up ultrasonography in 3-6 months. TECHNIQUE: Ultrasound of the pelvis is performed using both transabdominal and transvaginal transducers along with Doppler. Transvaginal imaging is performed due to inadequate visualization transabdominally. FINDINGS: UTERUS: The uterus is anteverted and measures 5.8 x 3.1 x 4.1 cm. The double wall endometrial thickness is 2 mm. Trace fluid is present in the endometrial canal. The uterus is smooth in contour and has normal myometrial echogenicity. No visible fibroid. ADNEXA: The right ovary was not seen. Left ovary measures 3.4 x 3.5 x 3.6 cm for a volume of 22.2 mL which includes a benign appearing 2.8 x 3.3 x 3.2 cm cyst. A similar finding was seen at the time of the 02/11/2023 CT scan. US/US pelvic and transvaginal IMPRESSION: Benign-appearing left ovarian cyst. No further follow-up should be necessary. Electronically signed by: Anton Hughes MD 12/25/2023 05:06 PM EDT RP
--- NOTE | ~2023-12-24 | US_ITS ---
EXAMINATION: US RETROPERITONEAL LIMITED (RENAL ONLY) CLINICAL INFORMATION: Kidney stones. COMPARISON: Ultrasound abdomen 01/09/2022. TECHNIQUE: Real-time imaging of the kidneys. FINDINGS: RIGHT KIDNEY: 9.0 x 4.8 x 5.0 cm (SAG x AP x TRV). The kidney is normal in size and contour. Renal cortical thickness is normal. No calculi or focal parenchymal lesions. No hydronephrosis. Subjective increased cortical echogenicity appears LEFT KIDNEY: 10.0 x 4.6 x 5.4 cm (SAG x AP x TRV). The kidney is normal in size, contour, and echogenicity. Renal cortical thickness is normal. No renal calculi. Multiple simple appearing peripelvic cysts, less likely hydronephrosis. US/US renal BI IMPRESSION: 1. No nephrolithiasis. 2. Subjective increased cortical echogenicity of the right kidney, which could be seen in the setting of chronic renal disease, correlate with renal function tests. 3. Multiple left peripelvic cysts, less likely hydronephrosis. Definite evaluation could be obtained with a CT abdomen with delayed intravenous contrast. Electronically signed by: Phyllis Neville MD 12/31/2023 03:58 PM EDT
== END 2023-12-24 13:59 | disposition home or self-care (01) ==
LOC: HO.HMGCX 13:58
PROVIDERS: PCP Internal Medicine; Visit Provider Internal Medicine
DX: N83.202 Unspecified ovarian cyst, left side (principal); N20.0 Calculus of kidney; I10 Essential (primary) hypertension
CPT/HCPCS: 76775; 76830; 76856

== ENCOUNTER 2023-12-25 10:58 | Outpatient (AMB) | payer MEDICARE, SELFPAY ==
[2023-12-25 11:07] VITALS: BP 124/62; PULSE 55; O2SAT 96
--- NOTE | 2023-12-25 11:07 | A.OFFPC_ITS ---
Vital Signs 12/25/23 11:07 Height 5 ft 2 in Weight 164 lb BMI 30.0 BP 124/62 Blood Pressure Location Lt brachial Position Sitting Pulse 55 Pulse Source Pulse Oximeter Pulse Oximetry (%) 96 Oxygen Delivery Method Room Air Intake Visit Reasons: 1 month f/u Intake Note: Pt is here today for 1 month follow up visit on edema and HTN. Allergies No Known Allergies Allergy (Verified 12/25/23 11:18) Medication List - Last Reconciled 12/25/23 by Leah Oliva MD [aspirin 81 mg PO] calcium carbonate (Calcium 600) 600 mg PO DAILY fluticasone propionate 50 mcg/actuation (Flonase Allergy Relief) 1 spray intranasal DAILY lisinopril 40 mg PO DAILY lorazepam 0.5 mg PO DAILY PRN omeprazole 20 mg PO DAILY pravastatin 20 mg PO DAILY triamterene-hydrochlorothiazid 37.5-25 mg 1 tab PO DAILY Tobacco use date assessed: 12/25/23 Dental Screening Dental Screen Date: 07/23/23 HPI 1 month f/u HPI Details PATIENT PRESENTS FOR THE FOLLOW-UP ON HYPERTENSION HYPERLIPIDEMIA CONTROLLED ON CURRENT MEDICATIONS [facility] Medical History (Updated 12/03/23 @ 14:54 by Leah Oliva MD) Annual physical exam Hyperlipidemia Cough GERD (gastroesophageal reflux disease) HTN (hypertension) Surgical History Hx of left inguinal hernia repair History of bilateral inguinal hernia repair H/O colonoscopy Family History Father Dementia Mother No problems noted. Social History Housing: House Alcohol intake: current Alcohol intake frequency: a few times a month Comment: COUNTS CORRECT Patient Tobacco Use Status: Never used Tobacco e-Cigarette/Vaping Use: Never Used service: No Current occupational status: retired Cognitive needs: No Hearing needs: No Vision needs: No Questionnaire Thrive Questionnaire Date Thrive assessed: 11/20/23 I am a: Patient What is your living situation today?: I have a steady place to live Within the past 12 months, did the food you bought not last and you didn't have the money to get more?: Never true Within the past 12 months, did you worry whether your food would run out before you got money to buy more?: Never true Do you have trouble paying for medicines?: No Do you have trouble getting transportation to medical appointments?: No Do you have trouble paying your heating and electricity bill?: No Do you have trouble taking care of your child, family member or friend?: No Do you have trouble with day-to-day activities such as bathing, preparing meals, shopping, managing finances, etc.?: No Are you currently unemployed and looking for a job?: No Are you interested in more education?: No Please select the resources that you would like help with: None Currently or been in a relationship where the following occur: No concerns reported THRIVE Score: 0 KAL-7 AMB Questionnaire KAL-7 Date KAL - 7 assessed: 11/20/23 Source: Developed by Drs. Tejas Miller, Tatum Reilly, Kayden Handley and colleagues, with an educational perico from [employer]. Review of Systems Const All systems reviewed & are unremarkable except as noted in HPI and below Card Reports no additional complaints Resp Reports no additional complaints GI Reports no additional complaints Physical exam (Primary Care) Vital Signs: Last Vital Signs Pulse 55 12/25/23 11:07 BP 124/62 12/25/23 11:07 Pulse Ox 96 12/25/23 11:07 Oxygen Delivery Method Room Air 12/25/23 11:07 BMI result Body Mass Index 30.0 Tobacco/Smoking Status: Tobacco use Status Tobacco use date assessed 12/25/23 12/25/23 11:19 Patient Tobacco Use Status Never used Tobacco 12/25/23 11:19 e-Cigarette/Vaping Use Never Used 12/25/23 11:07 Thrive Assessment: Date of Thrive Assessment Date Thrive assessed 11/20/23 12/25/23 11:07 Currently or been in a relationship where the following occur: No concerns reported Const General: no acute distress Neck Neck: Yes supple Resp Auscultation: clear to auscultation bilaterally Cardio Rhythm: regular rhythm Heart sounds: S1 normal heart sound present and S2 normal heart sound present Assessment and Plan Assessment & Plan (1) HTN (hypertension): Code(s): I10 - Essential (primary) hypertension Plan: Continue current medications (2) Hyperlipidemia: Code(s): E78.5 - Hyperlipidemia, unspecified Plan: Continue statin Coding Level of Care Code Est Pt Level 3 (83532) Diagnoses HTN (hypertension) I10 Hyperlipidemia E78.5
== END 2023-12-25 12:14 | disposition home or self-care (01) ==
PROVIDERS: PCP Internal Medicine; Visit Provider Internal Medicine
DX: I10 Essential (primary) hypertension (principal); E78.5 Hyperlipidemia, unspecified

== ENCOUNTER → 2023-12-25 10:58 | Outpatient (BNVA) | payer MEDICARE, SELFPAY | PROVIDERS: PCP Internal Medicine; Visit Provider Internal Medicine | DX: I10 Essential (primary) hypertension (principal); E78.5 Hyperlipidemia, unspecified | CPT/HCPCS: 99212 ==

== ENCOUNTER 2024-01-09 10:16 | Outpatient (REF) | payer MEDICARE, SELFPAY ==
--- NOTE | ~2024-01-09 | MM_ITS ---
EXAMINATION: BONE DENSITOMETRY CLINICAL INDICATION: Menopause. COMPARISON: This is the patient's baseline examination. TECHNIQUE: Using a [employer] DXA System (software version: 13.1) manufactured by [employer], dual-energy x-ray absorptiometry was performed of the lumbar spine and left hip. The images are of good technical quality. Summary results are attached. FINDINGS: LEFT FEMUR, NECK: BMD 0.629 g/cm2, Z-score -1.1, T-score -2.9, osteoporosis. LEFT FEMUR, TOTAL: BMD 0.704 g/cm2, Z-score -0.7, T-score -2.4, osteopenia. AP SPINE L1-L3 (excluding L4): The data of L1-L4 has been changed to exclude the L4 vertebral body, because degenerative sclerosis at this level may cause overestimation of lumbar spine density. BMD 0.830 g/cm2, Z-score -1.3, T-score -2.8, osteoporosis. IDENTIFIED RISK FACTORS: Menopause, osteoporosis, history of fracture (adult). HISTORY OF FRACTURE: Wrist. MEDICATIONS: Calcium or multivitamin. Vitamin D. MM/XR DEXA axial skeleton IMPRESSION: 1. DIAGNOSIS: Severe osteoporosis based on the lowest T-score value of -2.9 in the femur neck and history of fracture of wrist applying World Health Organization criteria. 2. 10-YEAR FRACTURE RISK PREDICTION, FRAX: According to the guidelines, FRAX calculation should only be performed on patients in the osteopenia bone density category. Therefore, FRAX was not performed on this patient. 3. Treatment Recommendations: NOF guidelines recommend consideration for treatment in postmenopausal women and men age 50 and older presenting with the following: -A hip or vertebral (clinical or morphometric) fracture. -T-score less than or equal to -2.5 at the femoral neck or spine after appropriate evaluation to exclude secondary causes. -Low bone mass at the hip or spine and a 10-year fracture probability by FRAX of greater than or equal to 3% for hip fracture or greater than or equal to 20% for major osteoporotic fracture based on the [place] adapted WHO algorithm. 4. Other Recommendations: All treatment decisions require clinical judgment and consideration of individual patient factors, including patient preferences, comorbidities, previous drug use, risk factors not captured in the FRAX model (e.g. frailty, falls, vitamin D deficiency, increased bone turnover, interval significant decline in bone density) and possible under or overestimation of fracture risk by FRAX. Additional medical evaluation for secondary cause of low bone mineral density may be appropriate. FUTURE SCAN RECOMMENDATION: People with diagnosed cases of osteoporosis or at high risk for fracture should have regular bone mineral density tests. For patients eligible for Medicare, routine testing is allowed once every 2 years. The testing frequency can be increased to one year for patients who have rapidly progressing disease, those who are receiving or discontinuing medical therapy to restore bone mass, or have additional risk factors. Electronically signed by: Liu León MD 01/20/2024 09:06 AM EDT RP
== END 2024-01-09 10:17 | disposition home or self-care (01) ==
LOC: HO.MAMMO 10:16
PROVIDERS: Visit Provider Internal Medicine
DX: Z13.820 Encounter for screening for osteoporosis (principal); Z78.0 Asymptomatic menopausal state
CPT/HCPCS: 77080

== ENCOUNTER 2024-01-21 08:51 | Outpatient (AMB) | payer MEDICARE, SELFPAY ==
[2024-01-21 09:01] VITALS: BP 136/80; PULSE 56; O2SAT 95; BMI 29.8
--- NOTE | 2024-01-21 09:01 | AM.OFFVISMDC ---
Intake Vital Signs 01/21/24 09:01 Height 5 ft 2 in Weight 163 lb BMI 29.8 BP 136/80 Blood Pressure Location Lt brachial Position Sitting Pulse 56 Pulse Source Pulse Oximeter Pulse Oximetry (%) 95 Oxygen Delivery Method Room Air Intake Visit Reasons: [facility] G0439 Allergies No Known Allergies Allergy (Verified 12/25/23 11:18) Medication List - Last Reconciled 01/21/24 by Leah Oliva MD [aspirin 81 mg PO] calcium carbonate (Calcium 600) 600 mg PO DAILY fluticasone propionate 50 mcg/actuation (Flonase Allergy Relief) 1 spray intranasal DAILY lisinopril 40 mg PO DAILY lorazepam 0.5 mg PO DAILY PRN omeprazole 20 mg PO DAILY pravastatin 20 mg PO DAILY triamterene-hydrochlorothiazid 37.5-25 mg 1 tab PO DAILY HPI [facility] G0439 HPI Details Initiated the conversation about Advanced Directives. Advanced Directives help? patients prepare for current and future decisions about their medical treatment? and place of care. Discussed with patient that it is a process where a patients? current condition and prognosis are reviewed, their wishes for information? regarding their illness are elicited, and likely medical dilemmas are presented? and options discussed. The form can be amended as needed, reviewed yearly and? make changes as needed IPPE/AWV ? year old presents? for her ? Annual? Wellness Visit, initial visit.? Medical / Social History Reviewed? Past Medical History ?Yes? . ? [place]? of Care / Care Team list updated ?Yes . ? Surgical/Hospitalization? History ?Yes . ? Current Medications? (including OTC and supplements) ?Yes . ? Family History ?Yes? . ? Tobacco? Control form ?Yes . ? AUDIT-C (Alcohol use) form? ?Yes . ? Illicit drug use in Social? History ?Yes . ? Current diagnosis of? depression? ?No ? Appropriate PHQ2/PHQ9? completed ?Yes . ? Data entered by ?Medical? [employer] and reviewed by provider ? Fall Risk ? Fall? History? Have you had any falls with? injury in the past year? ?No . ? Have you had two or more? falls in the past year? ?No . ? Fall Risk Assessment: ?No? falls in the past year . ? HRA filled out by? the patient, reviewed by Provider and scanned. ? IPPE/AWV ? Balance? [place]? ?Yes . ? Tandem? walk ?Yes . ? Walk and? Turn ?Yes . ? Rise from? sit to stand ?Yes . ?Vision? Corrective? lens ?Yes ? Vision? screen ? Up-to-date, has an appointment [] for vision? screening and glaucoma screening ?Hearing? Whisper? test ?pass .? Initiated the conversation about Advanced Directives. Advanced Directives help? patients prepare for current and future decisions about their medical treatment? and place of care. Discussed with patient that it is a process where a patients? current condition and prognosis are reviewed, their wishes for information? regarding their illness are elicited, and likely medical dilemmas are presented? and options discussed. The form can be amended as needed, reviewed yearly and? make changes as needed Written? Plan?Completed. See Patient? Documents. [facility] Medical History (Updated 01/21/24 @ 09:25 by Leah Oliva MD) Annual physical exam Hyperlipidemia Cough GERD (gastroesophageal reflux disease) HTN (hypertension) Surgical History Hx of left inguinal hernia repair History of bilateral inguinal hernia repair H/O colonoscopy Family History Father Dementia Mother No problems noted. Social History Housing: House Alcohol intake: current Alcohol intake frequency: a few times a month Comment: COUNTS CORRECT Patient Tobacco Use Status: Never used Tobacco e-Cigarette/Vaping Use: Never Used service: No Current occupational status: retired Cognitive needs: No Hearing needs: No Vision needs: No Questionnaire Medicare Wellness Checkup [age] What gender do you identify with?: female During the past 4 weeks, how much have you been bothered by emotional problems such as feeling anxious, depressed, irritable, sad or downhearted, and blue?: not at all During the past 4 weeks, has your physical & emotional health limited your social activities with family, friends, neighbors, or groups?: not at all During the past 4 weeks, how much bodily pain have you generally had?: very mild pain During the past 4 weeks, was someone available to help you if you needed & wanted help?: yes, as much as I wanted During the past 4 weeks, what was the hardest physical activity you could do for at least 2 minutes?: moderate Can you get to places out of walking distance without help? (For eg., can you travel alone on buses, taxis or drive your car?): Yes Can you go shopping for groceries or clothes without someone's help?: Yes Can you prepare your own meals?: Yes Can you do your housework without help?: Yes Because of any health problems, do you need the help of another person with your personal care needs such as eating, bathing, dressing or getting around the house?: No Can you handle your own money without help?: Yes During the past 4 weeks, how would you rate your health in general?: very good During the past 4 weeks how have things been going for you?: very well; could hardly better Are you having difficulties driving your car?: no Do you always fasten your seat belt when you are in a car?: yes, usually During past 4 weeks, have you been bothered by the following: never: Falling or dizzy when standing up, Sexual problems?, Trouble eating well?, Teeth or denture problems?, Problems using the telephone? and Tiredness or fatigue? Have you fallen 2 or more times in the past year?: No Are you afraid of falling?: No Are you a smoker?: no During the past 4 weeks, how many drinks of wine, beer, or other alcoholic beverages did you have?: no alcohol at all Do you exercise for about 20 minutes 3 or more times a week?: yes, some of the time Have you been given information to help with the following?: no: Hazards in your house that might hurt you? and no: Keeping track of your medications? How often do you have trouble taking medicines the way you have been told to take them?: I always take medicine as prescribed How confident are you that you can control & manage most of your health problems?: very confident What is your race?: White Mini Mental State Exam (MMSE) Orientation What is the (year) (season) (date) (day) (month)?: year, season, date, day and month Where are we (state) (county) (town or city) (hospital) (floor)?: state, county, town or city, hospital/clinic and floor Registration Name of 3 unrelated objects clearly and slowly, then ask patient to repeat all 3 of them. (1st repeat determines score. Make sure they can repeat all three): object 1, object 2 and object 3 Attention & Calculation (CHOOSE ONE) Spell WORLD backwards (DLROW): 5 letters Recall Ask patient to repeat the 3 items from question #3.: object 1, object 2 and object 3 Language Show patient a wristwatch & ask what it is. Repeat for pencil.: watch and pencil Ask the patient to repeat the phrase 'No ifs, ands, or buts' after you.: correct Ask the patient to 'take a piece of paper with their right hand' 'fold paper in half' 'place paper on floor': take paper in right hand, fold paper in half and place paper on floor Print the sentence 'CLOSE YOUR EYES' on a piece. If patient actually closes eyes then score.: followed written direction Give patient a blank piece of paper & ask to write a sentence. Score if it contains a noun & verb.: sentence contains subject and verb Score Score: 29 PHQ-9 Over the last 2 weeks, how often have you been bothered by any of the following problems? 1. Little interest or pleasure in doing things: not at all 2. Feeling down, depressed, or hopeless: not at all 3. Trouble falling or staying asleep, or sleeping too much: not at all 4. Feeling tired or having little energy: not at all 5. Poor appetite or overeating: not at all 6. Feeling bad about yourself - or that you are a failure or have let yourself or your family down: not at all 7. Trouble concentrating on things, such as reading the newspaper or watching television: not at all 8. Moving or speaking so slowly that other people could have noticed. Or the opposite - being so fidgety or restless that you have been moving around a lot more than usual: not at all 9. Thoughts that you would be better off or of hurting yourself in some way: not at all Total score: 0 Depression Screening Interpretation: Negative Depression Screening Done: Yes 99890 - PHQ-9 Billing: Yes Source: Developed by Drs. Tejas Miller, Tatum Reilly, Kayden Handley and colleagues, with an educational perico from [employer]. Review of Systems Const All systems reviewed & are unremarkable except as noted in HPI and below Eyes Reports no additional complaints ENT Reports no additional complaints Card Reports no additional complaints Resp Reports no additional complaints GI Reports no additional complaints Reports no additional complaints Musc Reports no additional complaints Physical Exam Vital Signs: Last Vital Signs Pulse 56 01/21/24 09:01 BP 136/80 01/21/24 09:01 Pulse Ox 95 01/21/24 09:01 Oxygen Delivery Method Room Air 01/21/24 09:01 BMI result Body Mass Index 29.8 Const General: no acute distress HEENT Head: Yes normal to inspection Ears: hearing grossly normal bilaterally Eyes General: appearance normal, both eyes and all related structures Neck Neck: Yes no lymphadenopathy and Yes supple Resp Effort & Inspection: normal respiratory effort Auscultation: clear to auscultation bilaterally Cardio Rhythm: regular rhythm Heart sounds: S1 normal heart sound present and S2 normal heart sound present GI Inspection: Yes normal to inspection Palpation (GI): Soft to palpation Percussion: Yes normal to percussion Auscultation: normal bowel sounds Extrem General: Yes no clubbing, cyanosis or edema Assessment & Plan Assessment & Plan (1) HTN (hypertension): Code(s): I10 - Essential (primary) hypertension Plan: Continue current medications patient will return for fasting blood work (2) Hyperlipidemia: Code(s): E78.5 - Hyperlipidemia, unspecified Plan: Continue statin (3) Annual physical exam: Code(s): Z00.00 - Encounter for general adult medical examination without abnormal findings Plan: Well-balanced diet regular physical activity discussed with the patient (4) Osteoporosis: Comment: DEXA 01/2024 Tscore -2.9, intolerant to Fosamax, start Prolia 01/2024 Code(s): M81.0 - Age-related osteoporosis without current pathological fracture Plan: For worsening osteoporosis Prolia will be started and continue for 2 years. Patient was advised to continue vitamin-D supplement and start weight-bearing exercises at least 3 times a week. Repeat DEXA in 2 years (5) Vitamin D deficiency: Code(s): E55.9 - Vitamin D deficiency, unspecified Plan: Continue vitamin-D Orders: Orders Comprehensive [place]. Panel Fast Today E55.9 - Vitamin D deficiency, unspecified, E78.5 - Hyperlipidemia, unspecified, I10 - Essential (primary) hypertension, M81.0 - Age-related osteoporosis without current pathological fracture, Z00.00 - Encounter for general adult medical examination without abnormal findings Complete Blood Count Auto Diff Today E55.9 - Vitamin D deficiency, unspecified, E78.5 - Hyperlipidemia, unspecified, I10 - Essential (primary) hypertension, M81.0 - Age-related osteoporosis without current pathological fracture, Z00.00 - Encounter for general adult medical examination without abnormal findings Lipid Panel Today E55.9 - Vitamin D deficiency, unspecified, E78.5 - Hyperlipidemia, unspecified, I10 - Essential (primary) hypertension, M81.0 - Age-related osteoporosis without current pathological fracture, Z00.00 - Encounter for general adult medical examination without abnormal findings Vitamin D 25-OH Total Today E55.9 - Vitamin D deficiency, unspecified, E78.5 - Hyperlipidemia, unspecified, I10 - Essential (primary) hypertension, M81.0 - Age-related osteoporosis without current pathological fracture, Z00.00 - Encounter for general adult medical examination without abnormal findings UA w Microscopic Today E55.9 - Vitamin D deficiency, unspecified, E78.5 - Hyperlipidemia, unspecified, I10 - Essential (primary) hypertension, M81.0 - Age-related osteoporosis without current pathological fracture, Z00.00 - Encounter for general adult medical examination without abnormal findings Medications: New Prolia (denosumab) 60 mg subcut [id number] 1 mL 1RF NS Quality Reporting (2019) Depression/Bipolar (159/160/161/177) PHQ-9: Total score: 0 Coding Level of Care Code Medicare Subsequent (G0439) Diagnoses HTN (hypertension) I10 Hyperlipidemia E78.5 Annual physical exam Z00.00 Osteoporosis M81.0 Vitamin D deficiency E55.9 CPT Codes Advance Care Planning - Time spent: 1-15 minutes, not on file ([id number]) Advance Care Planning Advance Care Planning discussion: Exists, not on file Forms completed: Health Care Proxy Time spent: 1-15 minutes, not on file Did not discuss due to Cultural/Spiritual beliefs: Yes
== END 2024-01-21 09:38 | disposition home or self-care (01) ==
PROVIDERS: PCP Internal Medicine; Visit Provider Internal Medicine
DX: Z00.00 Encounter for general adult medical examination without abnormal findings (principal); I10 Essential (primary) hypertension; E78.5 Hyperlipidemia, unspecified; M81.0 Age-related osteoporosis without current pathological fracture; E55.9 Vitamin D deficiency, unspecified

== ENCOUNTER → 2024-01-21 08:51 | Outpatient (BNVA) | payer MEDICARE, SELFPAY | PROVIDERS: PCP Internal Medicine; Visit Provider Internal Medicine ==

== ENCOUNTER 2024-01-27 09:13 | Outpatient (REF) | payer MEDICARE, SELFPAY ==
[2024-01-27 13:17] LABS: MANUAL DIFF FLAG NO
[2024-01-27 13:23] LABS: Appearance Urine Clear; Color Urine Yellow; Glucose Urine UA Negative (Negative); Leukocyte Esterase Urine Trace (Negative); Nitrite Urine Negative (Negative); PH 8.5 (5.0-9.0); UMIC TRIGGER UA YES; Urine Blood Negative (Negative); Urine Ketones Negative (Negative); Urine Protein Negative (Neg-Trace)
[2024-01-27 13:28] LABS: Basophils Percent Auto 0.6 % (0-2); Eosinophils Absolute Auto 0.2 X10*3/uL (0.0-0.4); Eosinophils Percent Auto 3.8 % (0-4); Hematocrit 41.3 % (37.0-47.0); Hemoglobin 13.6 g/dl (12.0-16.0); Imm Gran Abs Auto 0.01 X10*3/uL (0.00-0.03); Imm Gran Pct Auto 0.2 % (0.0-0.4); Lymphocytes Absolute Auto 1.3 X10*3/uL (1.2-4.9); Lymphocytes Percent Auto 28.1 % (20-40); Mean Corpuscular HGB Conc 32.9 g/dl (31.0-35.0); Mean Corpuscular Hemoglobin 29.1 pg (27.0-33.0); Mean Corpuscular Volume 88.2 fL (80.0-98.0); Mean Platelet Volume 10.1 fL (9.4-12.3); Monocytes Absolute Auto 0.6 X10*3/uL (0.1-1.2); Monocytes Percent Auto 13.6 % (2-11); Neutrophils Absolute Auto 2.5 x10*3/uL (2.0-8.3); Neutrophils Percent Auto 53.7 % (45-73); Platelet Count 247 X10*3/uL (160-400); Red Blood Count 4.68 X10*6/uL (4.20-5.50); Red Cell Distribution Width 13.8 % (11.0-16.0); White Blood Count 4.7 X10*3/uL (4.8-10.8)
[2024-01-27 13:40] LABS: Bacteria Urine None Seen (None Seen); Hyaline Casts Urine 0-2 /LPF (0-2); RBC Urine 0-2 /HPF (0-2); Squamous Epithelial Cell Urine 0-2 /HPF (0-2); WBC Urine 0-5 /HPF (0-5)
[2024-01-27 13:42] LABS: Alanine Aminotransferase 16 U/L (0-31); Alkaline Phosphatase 70 U/L (39-117); Anion Gap 11 (12-20); Aspartate Amino Transferase 24 U/L (5-31); Bilirubin Total 0.7 mg/dL (0.0-1.0); Blood Urea Nitrogen 10 mg/dL (9-16); Calcium 9.7 mg/dL (8.4-10.2); Carbon Dioxide 29 mmol/L (22-29); Chloride 103 mmol/L (96-108); Cholesterol 184 mg/dL (<200); Estimated Glomerular Filt Rate > 60; Glucose Fasting 87 mg/dL (60-99); HDL Cholesterol 74 mg/dL (>40); LDL Cholesterol Calculated 101 mg/dL (<100); Sodium 138 mmol/L (135-145); Triglycerides 48 mg/dL (<150)
[2024-01-27 13:59] LABS: Vitamin D 25-OH Total 39.9 ng/mL (>30)
== END 2024-01-27 09:14 | disposition home or self-care (01) ==
LOC: HO.HMGCLDS 09:13
PROVIDERS: PCP Internal Medicine; Visit Provider Internal Medicine
DX: Z00.00 Encounter for general adult medical examination without abnormal findings (principal); I10 Essential (primary) hypertension; E78.5 Hyperlipidemia, unspecified; M18.0 Bilateral primary osteoarthritis of first carpometacarpal joints; E55.9 Vitamin D deficiency, unspecified
CPT/HCPCS: 36415; 80053; 80061; 81001; 82306; 85025

== ENCOUNTER 2024-07-22 09:12 | Outpatient (AMB) | payer MEDICARE, SELFPAY ==
--- NOTE | 2024-07-22 09:15 | A.OFFPC_ITS ---
Vital Signs 07/22/24 09:17 Height 5 ft 2 in Weight 159 lb BMI 29.1 BP 118/72 Blood Pressure Location Lt brachial Position Sitting Respiration 18 Pulse 68 Pulse Source Pulse Oximeter Temp 98.1 F Temp Source Oral Pulse Oximetry (%) 95 Oxygen Delivery Method Room Air Intake Visit Reasons: 6 month follow up Intake Note: Pt is here today for 6 months follow up visit. Allergies No Known Allergies Allergy (Verified 07/22/24 09:18) Medication List - Last Reconciled 07/22/24 by Leah Oliva MD alendronate (Fosamax) 70 mg PO QWEEK [aspirin 81 mg PO] calcium carbonate (Calcium 600) 600 mg PO DAILY fluticasone propionate 50 mcg/actuation (Flonase Allergy Relief) 1 spray intranasal DAILY lisinopril 40 mg PO DAILY lorazepam 0.5 mg PO DAILY PRN omeprazole 20 mg PO DAILY pravastatin 20 mg PO DAILY triamterene-hydrochlorothiazid 37.5-25 mg 1 tab PO DAILY Tobacco use date assessed: 07/22/24 Fall risk assessment: No Falls in past year Last assessed Fall Risk: 07/22/24 Dental Screening Dental Screen Date: 07/22/24 Did you have a dental visit in the last 12 months?: No Did you have a dental problem in the last 6 months where you did not have access to dental care?: No Was dental information given to patient?: Patient declined HPI 6 month follow up 2 HPI Details Pt presents for HTN, hyperlipid chronic GERD stable on current medications. Patient could not afford Prolia. She has been taking vitamin-D supplement and exercising regularly [facility] Medical History (Updated 07/22/24 @ 09:58 by Leah Oliva MD) Annual physical exam Hyperlipidemia Cough GERD (gastroesophageal reflux disease) HTN (hypertension) Surgical History Hx of left inguinal hernia repair History of bilateral inguinal hernia repair H/O colonoscopy Family History Father Dementia Mother No problems noted. Social History Housing: House Alcohol intake: current Alcohol intake frequency: a few times a month Comment: COUNTS CORRECT Patient Tobacco Use Status: Never used Tobacco e-Cigarette/Vaping Use: Never Used service: No Current occupational status: retired Cognitive needs: No Hearing needs: No Vision needs: No Questionnaire PHQ-9 Over the last 2 weeks, how often have you been bothered by any of the following problems? 1. Little interest or pleasure in doing things: not at all 2. Feeling down, depressed, or hopeless: not at all 3. Trouble falling or staying asleep, or sleeping too much: not at all 4. Feeling tired or having little energy: not at all 5. Poor appetite or overeating: not at all 6. Feeling bad about yourself - or that you are a failure or have let yourself or your family down: not at all 7. Trouble concentrating on things, such as reading the newspaper or watching television: not at all 8. Moving or speaking so slowly that other people could have noticed. Or the opposite - being so fidgety or restless that you have been moving around a lot more than usual: not at all 9. Thoughts that you would be better off or of hurting yourself in some way: not at all Total score: 0 Depression Screening Interpretation: Negative Depression Screening Done: Yes 55548 - PHQ-9 Billing: Yes Source: Developed by Drs. Tejas Miller, Tatum Reilly, Kayden Handley and colleagues, with an educational perico from [employer]. Thrive Questionnaire Date Thrive assessed: 07/22/24 I am a: Patient What is your living situation today?: I have a steady place to live Within the past 12 months, did the food you bought not last and you didn't have the money to get more?: Never true Within the past 12 months, did you worry whether your food would run out before you got money to buy more?: Never true Do you have trouble paying for medicines?: No Do you have trouble getting transportation to medical appointments?: No Do you have trouble paying your heating and electricity bill?: No Do you have trouble taking care of your child, family member or friend?: No Do you have trouble with day-to-day activities such as bathing, preparing meals, shopping, managing finances, etc.?: No Are you currently unemployed and looking for a job?: No Are you interested in more education?: No Please select the resources that you would like help with: None Currently or been in a relationship where the following occur: No concerns reported THRIVE Score: 0 AUDIT C Alcohol Use Questionnaire (AUDIT-C) 1. How often do you have a drink containing alcohol?: Monthly or less 2. How many drinks containing alcohol do you have on a typical day when you are drinking?: 1 or 2 3. How often do you have six or more drinks on one occasion?: Never Total Score: 1 KAL-7 AMB Questionnaire KAL-7 Date KAL - 7 assessed: 07/22/24 Feeling nervous, anxious, or on edge: 0 = Not at all Not being able to stop or control worryin = Not at all Worrying too much about different things: 0 = Not at all Trouble relaxin = Not at all Being so restless that it is hard to sit still: 0 = Not at all Becoming easily annoyed or irritable: 0 = Not at all Feeling afraid as if something awful might happen: 0 = Not at all Total KAL-7 score (0-4 normal; 5-9 mild; 10-14 moderate; 15-21 severe): 0 Source: Developed by Drs. Tejas Miller, Tatum Reilly, Kayden Handley and colleagues, with an educational perico from [employer]. KAL-7 Assessment Billing KAL-7 Assessment Tool: KAL-7 Assessment 33133 Review of Systems Const All systems reviewed & are unremarkable except as noted in HPI and below Eyes Reports no additional complaints ENT Reports no additional complaints Card Reports no additional complaints Resp Reports no additional complaints GI Reports no additional complaints Reports no additional complaints Physical exam (Primary Care) Vital Signs: Last Vital Signs Temp 98.1 F 07/22/24 09:17 Pulse 68 07/22/24 09:17 Resp 18 07/22/24 09:17 BP 118/72 07/22/24 09:17 Pulse Ox 95 07/22/24 09:17 Oxygen Delivery Method Room Air 07/22/24 09:17 BMI result Body Mass Index 29.1 Tobacco/Smoking Status: Tobacco use Status Tobacco use date assessed 07/22/24 07/22/24 09:24 Patient Tobacco Use Status Never used Tobacco 07/22/24 09:17 e-Cigarette/Vaping Use Never Used 07/22/24 09:17 PHQ-9: PHQ-9 Score PHQ-9: Total score 0 07/22/24 09:33 Depression Screening Interpretation: Negative Thrive Assessment: Date of Thrive Assessment Date Thrive assessed 07/22/24 07/22/24 09:24 Currently or been in a relationship where the following occur: No concerns reported Const General: no acute distress HENMT Head: Yes normal to inspection Face and sinus: Yes normal facial exam Mouth: Normal oral and palatal mucosa present Neck Neck: Yes no lymphadenopathy and Yes supple Resp Effort & Inspection: normal respiratory effort Auscultation: clear to auscultation bilaterally Cardio Rhythm: regular rhythm Heart sounds: S1 normal heart sound present and S2 normal heart sound present GI Inspection: Yes normal to inspection Palpation (GI): Soft to palpation Immunizations pneumoc 20-lance conj-dip cr(PF) 0.5 mL IM syringe Performing Provider: Leah Oliva MD Performing Location: [facility] Administered by: YOMAIRA Bailey on 07/22/24 09:49 Dose Route Admin Location Dispensed Lot Number Expiration Date NDC Education Rn 0.5 mL IM Right Deltoid 0.5 mL [id number] 06/05/25 8157-3674-18 [employer] VIS Given Date VIS Provided VIS Publication Date 07/22/24 Single Vaccine 21 Eligibility Eligibility Date Funding Source Not [facility] Eligible 07/22/24 Private Coding Level of Care Code Est Pt Level 4 (05431) Diagnoses HTN (hypertension) I10 Hyperlipidemia E78.5 Vitamin D deficiency E55.9 Osteoporosis M81.0 Additional Codes KAL-7 Assessment Billing - AKL-7 Assessment Tool: KAL-7 Assessment 28641 ([id number]) PHQ-9 - 65621 - PHQ-9 Billing: Yes ([id number]) Assessment & Plan Assessment & Plan (1) HTN (hypertension): Code(s): I10 - Essential (primary) hypertension Category: Medical Plan: Continue current medications (2) Hyperlipidemia: Code(s): E78.5 - Hyperlipidemia, unspecified Category: Medical Plan: Continue statin (3) Vitamin D deficiency: Code(s): E55.9 - Vitamin D deficiency, unspecified Category: Medical Plan: Continue vitamin-D (4) Osteoporosis: Comment: DEXA 01/2024 Tscore -2.9, start Fosamax 07/2024 Code(s): M81.0 - Age-related osteoporosis without current pathological fracture Category: Medical Plan: Fosamax will be started, patient will continue vitamin-D calcium supplement w eight-bearing exercise discussed with the patient. Follow-up in 6 months with a fasting labs before Orders: Orders Comprehensive [place]. Panel Fast 6 Months E55.9 - Vitamin D deficiency, unspecified, E78.5 - Hyperlipidemia, unspecified, I10 - Essential (primary) hypertension, M81.0 - Age-related osteoporosis without current pathological fracture Complete Blood Count Auto Diff 6 Months E55.9 - Vitamin D deficiency, unspecified, E78.5 - Hyperlipidemia, unspecified, I10 - Essential (primary) hypertension, M81.0 - Age-related osteoporosis without current pathological fracture Vitamin D 25-OH Total 6 Months E55.9 - Vitamin D deficiency, unspecified, E78.5 - Hyperlipidemia, unspecified, I10 - Essential (primary) hypertension, M81.0 - Age-related osteoporosis without current pathological fracture Pneumococcal 20 Immunization Today Z23 - Encounter for immunization Lipid Panel 6 Months E55.9 - Vitamin D deficiency, unspecified, E78.5 - Hyperlipidemia, unspecified, I10 - Essential (primary) hypertension, M81.0 - Age-related osteoporosis without current pathological fracture Medications: New alendronate (Fosamax) 70 mg PO QWEEK 14 tabs 3RF Refilled fluticasone propionate 50 mcg/actuation (Flonase Allergy Relief) administer into each nostril 1 spray intranasal DAILY 16 grams 5RF lisinopril 40 mg PO DAILY 90 tabs 3RF omeprazole 20 mg PO DAILY 90 caps 3RF triamterene-hydrochlorothiazid 37.5-25 mg 1 tab PO DAILY 90 tabs 3RF lorazepam 0.5 mg PO DAILY PRN 7 tabs 0RF acute anxiety attacks pravastatin 20 mg PO DAILY 90 tabs 3RF E78.5 - Hyperlipidemia, unspecified Discontinued Prolia (denosumab) Discontinued Reason: Doctor's Order 60 mg subcut [id number] 1 mL 1RF NS
[2024-07-22 09:17] VITALS: BP 118/72; PULSE 68; RESP 18; TEMP 36.7; O2SAT 95; BMI 29.1
== END 2024-07-22 09:49 | disposition home or self-care (01) ==
LOC: HO.HMCC 09:13
PROVIDERS: PCP Internal Medicine; Visit Provider Internal Medicine
DX: I10 Essential (primary) hypertension (principal); E78.5 Hyperlipidemia, unspecified; E55.9 Vitamin D deficiency, unspecified; M81.0 Age-related osteoporosis without current pathological fracture; Z23 Encounter for immunization

== ENCOUNTER → 2024-07-22 09:12 | Outpatient (BNVA) | payer MEDICARE, SELFPAY | PROVIDERS: PCP Internal Medicine; Visit Provider Internal Medicine | DX: I10 Essential (primary) hypertension (principal); Z23 Encounter for immunization; E78.5 Hyperlipidemia, unspecified; E55.9 Vitamin D deficiency, unspecified; M81.0 Age-related osteoporosis without current pathological fracture; Z79.899 Other long term (current) drug therapy | CPT/HCPCS: 90471; 90677; 96127; 99212 ==

== ENCOUNTER 2024-12-21 08:42 | Outpatient (REF) | payer MEDICARE, SELFPAY ==
[2024-12-21 10:07] LABS: MANUAL DIFF FLAG NO
[2024-12-21 10:09] LABS: Hematocrit 40.1 % (37.0-47.0); Hemoglobin 13.3 g/dl (12.0-16.0); Imm Gran Abs Auto 0.01 X10*3/uL (0.00-0.03); Imm Gran Pct Auto 0.2 % (0.0-0.4); Lymphocytes Absolute Auto 1.6 X10*3/uL (1.2-4.9); Mean Corpuscular HGB Conc 33.2 g/dl (31.0-35.0); Mean Corpuscular Hemoglobin 29.5 pg (27.0-33.0); Mean Corpuscular Volume 88.9 fL (80.0-98.0); NRBC Abs Auto 0.000 X10*3/uL (0.0-0.012); NRBC Pct Auto 0.0 /100WBC (0.0-0.2); Platelet Count 223 X10*3/uL (160-400); Red Blood Count 4.51 X10*6/uL (4.20-5.50); White Blood Count 4.6 X10*3/uL (4.8-10.8)
[2024-12-21 10:38] LABS: Alanine Aminotransferase 15 U/L (0-31); Albumin Level 4.0 g/dL (3.5-5.0); Alkaline Phosphatase 60 U/L (39-117); Anion Gap 10 (12-20); Aspartate Amino Transferase 20 U/L (5-31); Blood Urea Nitrogen 14 mg/dL (9-16); Calcium 9.0 mg/dL (8.4-10.2); Carbon Dioxide 27 mmol/L (22-29); Chloride 109 mmol/L (96-108); Cholesterol 232 mg/dL (<200); Estimated Glomerular Filt Rate > 60; HDL Cholesterol 71 mg/dL (>40); Potassium 4.9 mmol/L (3.3-5.1); Sodium 141 mmol/L (135-145); Total Protein 6.9 g/dL (6.5-8.0); Triglycerides 59 mg/dL (<150)
== END 2024-12-21 08:43 | disposition home or self-care (01) ==
LOC: HO.HMGCLDS 08:42
PROVIDERS: PCP Internal Medicine; Visit Provider Internal Medicine
DX: M81.0 Age-related osteoporosis without current pathological fracture (principal); E55.9 Vitamin D deficiency, unspecified; I10 Essential (primary) hypertension; E78.5 Hyperlipidemia, unspecified
CPT/HCPCS: 36415; 80053; 80061; 82306; 85025

== ENCOUNTER 2025-01-22 09:33 | Outpatient (AMB) | payer MEDICARE, SELFPAY ==
[2025-01-22 09:51] VITALS: BP 124/76; PULSE 58; RESP 18; TEMP 36.7; O2SAT 98; BMI 29.4
--- NOTE | 2025-01-22 09:51 | A.OFFVIS_ITS ---
Intake Vital Signs 01/22/25 09:51 Height 5 ft 2 in Weight 161 lb BMI 29.4 BP 124/76 Blood Pressure Location Lt brachial Position Sitting Respiration 18 Pulse 58 Pulse Source Pulse Oximeter Temp 98.0 F Temp Source Oral Pulse Oximetry (%) 98 Oxygen Delivery Method Room Air Intake Visit Reasons: SWV G0439 Intake Note: Pt is here today for AWV. Pt has been having abdominal pain. Allergies No Known Allergies Allergy (Verified 07/22/24 09:18) Medication List - Last Reconciled 01/22/25 by Leah Oliva MD alendronate (Fosamax) 70 mg PO QWEEK [aspirin 81 mg PO] calcium carbonate (Calcium 600) 600 mg PO DAILY fluticasone propionate 50 mcg/actuation (Flonase Allergy Relief) 1 spray intranasal DAILY lisinopril 40 mg PO DAILY lorazepam 0.5 mg PO DAILY PRN omeprazole 20 mg PO DAILY pravastatin 20 mg PO DAILY triamterene-hydrochlorothiazid 37.5-25 mg 1 tab PO DAILY HPI SWV G0439 HPI Details Patient presents for annual visit. She reports epigastric discomfort worse after eating spicy or fried foods. Patient denies nausea vomiting hematochezia melena heartburn. She has been taking omeprazole on and off and Tums with some relief. Initiated the conversation about Advanced Directives. Advanced Directives help? patients prepare for current and future decisions about their medical treatment? and place of care. Discussed with patient that it is a process where a patients? current condition and prognosis are reviewed, their wishes for information? regarding their illness are elicited, and likely medical dilemmas are presented? and options discussed. The form can be amended as needed, reviewed yearly and? make changes as needed IPPE/AWV ? year old presents? for her ? Annual? Wellness Visit, initial visit.? Medical / Social History Reviewed? Past Medical History ?Yes? . ? [place]? of Care / Care Team list updated ?Yes . ? Surgical/Hospitalization? History ?Yes . ? Current Medications? (including OTC and supplements) ?Yes . ? Family History ?Yes? . ? Tobacco? Control form ?Yes . ? AUDIT-C (Alcohol use) form? ?Yes . ? Illicit drug use in Social? History ?Yes . ? Current diagnosis of? depression? ?No ? Appropriate PHQ2/PHQ9? completed ?Yes . ? Data entered by ?Medical? [employer] and reviewed by provider ? Fall Risk ? Fall? History? Have you had any falls with? injury in the past year? ?No . ? Have you had two or more? falls in the past year? ?No . ? Fall Risk Assessment: ?No? falls in the past year . ? HRA filled out by? the patient, reviewed by Provider and scanned. ? IPPE/AWV ? Balance? [place]? ?Yes . ? Tandem? walk ?Yes . ? Walk and? Turn ?Yes . ? Rise from? sit to stand ?Yes . ?Vision? Corrective? lens ?Yes ? Vision? screen ? Up-to-date, has an appointment [] for vision? screening and glaucoma screening ?Hearing? Whisper? test ?pass .? Initiated the conversation about Advanced Directives. Advanced Directives help? patients prepare for current and future decisions about their medical treatment? and place of care. Discussed with patient that it is a process where a patients? current condition and prognosis are reviewed, their wishes for information? regarding their illness are elicited, and likely medical dilemmas are presented? and options discussed. The form can be amended as needed, reviewed yearly and? make changes as needed Written? Plan?Completed. See Patient? Documents. [facility] Medical History (Updated 01/22/25 @ 10:12 by Leah Oliva MD) Annual physical exam Hyperlipidemia Cough GERD (gastroesophageal reflux disease) HTN (hypertension) Surgical History Hx of left inguinal hernia repair History of bilateral inguinal hernia repair H/O colonoscopy Family History Father Dementia Mother No problems noted. Social History Housing: House Alcohol intake: current Alcohol intake frequency: a few times a month Comment: COUNTS CORRECT Patient Tobacco Use Status: Never used Tobacco e-Cigarette/Vaping Use: Never Used service: No Current occupational status: retired Cognitive needs: No Hearing needs: No Vision needs: No Questionnaire Medicare Wellness Checkup [age] What gender do you identify with?: female During the past 4 weeks, how much have you been bothered by emotional problems such as feeling anxious, depressed, irritable, sad or downhearted, and blue?: not at all During the past 4 weeks, has your physical & emotional health limited your social activities with family, friends, neighbors, or groups?: not at all During the past 4 weeks, how much bodily pain have you generally had?: very mild pain During the past 4 weeks, was someone available to help you if you needed & wanted help?: yes, as much as I wanted During the past 4 weeks, what was the hardest physical activity you could do for at least 2 minutes?: moderate Can you get to places out of walking distance without help? (For eg., can you travel alone on buses, taxis or drive your car?): Yes Can you go shopping for groceries or clothes without someone's help?: Yes Can you prepare your own meals?: Yes Can you do your housework without help?: Yes Because of any health problems, do you need the help of another person with your personal care needs such as eating, bathing, dressing or getting around the house?: No Can you handle your own money without help?: Yes During the past 4 weeks, how would you rate your health in general?: very good During the past 4 weeks how have things been going for you?: very well; could hardly better Are you having difficulties driving your car?: no Do you always fasten your seat belt when you are in a car?: yes, usually During past 4 weeks, have you been bothered by the following: never: Falling or dizzy when standing up, Sexual problems?, Trouble eating well?, Teeth or denture problems?, Problems using the telephone? and Tiredness or fatigue? Have you fallen 2 or more times in the past year?: No Are you afraid of falling?: No Are you a smoker?: no During the past 4 weeks, how many drinks of wine, beer, or other alcoholic beverages did you have?: no alcohol at all Do you exercise for about 20 minutes 3 or more times a week?: yes, some of the time Have you been given information to help with the following?: no: Hazards in your house that might hurt you? and no: Keeping track of your medications? How often do you have trouble taking medicines the way you have been told to take them?: I always take medicine as prescribed How confident are you that you can control & manage most of your health problems?: very confident What is your race?: White Mini Mental State Exam (MMSE) Orientation What is the (year) (season) (date) (day) (month)?: year, season, date, day and month Where are we (state) (county) (town or city) (hospital) (floor)?: state, county, town or city, hospital/clinic and floor Registration Name of 3 unrelated objects clearly and slowly, then ask patient to repeat all 3 of them. (1st repeat determines score. Make sure they can repeat all three): object 1, object 2 and object 3 Attention & Calculation (CHOOSE ONE) Spell WORLD backwards (DLROW): 5 letters Recall Ask patient to repeat the 3 items from question #3.: object 1, object 2 and object 3 Language Show patient a wristwatch & ask what it is. Repeat for pencil.: watch and pencil Ask the patient to repeat the phrase 'No ifs, ands, or buts' after you.: correct Ask the patient to 'take a piece of paper with their right hand' 'fold paper in half' 'place paper on floor': take paper in right hand, fold paper in half and place paper on floor Print the sentence 'CLOSE YOUR EYES' on a piece. If patient actually closes eyes then score.: followed written direction Give patient a blank piece of paper & ask to write a sentence. Score if it contains a noun & verb.: sentence contains subject and verb Score Score: 29 PHQ-9 Over the last 2 weeks, how often have you been bothered by any of the following problems? 1. Little interest or pleasure in doing things: not at all 2. Feeling down, depressed, or hopeless: not at all 3. Trouble falling or staying asleep, or sleeping too much: not at all 4. Feeling tired or having little energy: not at all 5. Poor appetite or overeating: not at all 6. Feeling bad about yourself - or that you are a failure or have let yourself or your family down: not at all 7. Trouble concentrating on things, such as reading the newspaper or watching television: not at all 8. Moving or speaking so slowly that other people could have noticed. Or the opposite - being so fidgety or restless that you have been moving around a lot more than usual: not at all 9. Thoughts that you would be better off or of hurting yourself in some way: not at all Total score: 0 Depression Screening Interpretation: Negative Depression Screening Done: Yes 06151 - PHQ-9 Billing: Yes Source: Developed by Drs. Tejas Miller, Tatum Reilly, Kayden Handley and colleagues, with an educational perico from [employer]. Review of Systems Const All systems reviewed & are unremarkable except as noted in HPI and below Eyes Reports no additional complaints ENT Reports no additional complaints Card Reports no additional complaints Resp Reports no additional complaints GI Reports no additional complaints Reports no additional complaints Physical Exam Vital Signs: Last Vital Signs Temp 98.0 F 01/22/25 09:51 Pulse 58 01/22/25 09:51 Resp 18 01/22/25 09:51 BP 124/76 01/22/25 09:51 Pulse Ox 98 01/22/25 09:51 Oxygen Delivery Method Room Air 01/22/25 09:51 BMI result Body Mass Index 29.4 Const General: no acute distress HEENT Head: Yes normal to inspection Ears: TM's normal bilaterally Face and sinus: Yes normal facial exam Throat: Yes posterior oropharynx normal Eyes General: appearance normal, both eyes and all related structures Neck Neck: Yes no lymphadenopathy and Yes supple Resp Effort & Inspection: normal respiratory effort Auscultation: clear to auscultation bilaterally Cardio Rhythm: regular rhythm Heart sounds: S1 normal heart sound present and S2 normal heart sound present GI Inspection: Yes normal to inspection Extrem General: Yes no clubbing, cyanosis or edema Assessment & Plan Assessment & Plan (1) RUQ abdominal pain: Code(s): R10.11 - Right upper quadrant pain Plan: For chronic epigastric and right abdominal pain obtain abdominal ultrasound to rule out gallstones. Check H pylori stool Ag, after obtaining stool omeprazole will be increased to 40 mg daily for a month and if her symptoms persist she will be referred to GI for endoscopy (2) HTN (hypertension): Code(s): I10 - Essential (primary) hypertension Plan: Continue medications (3) Hyperlipidemia: Code(s): E78.5 - Hyperlipidemia, unspecified Plan: Continue statin Orders: Orders H pylori Ag Stool Today K29.70 - Gastritis, unspecified, without bleeding US abdomen limited Today R10.11 - Right upper quadrant pain Quality Reporting (2019) Depression/Bipolar (159/160/161/177) PHQ-9: Total score: 0 Coding Level of Care Code Medicare Subsequent (G0439) Diagnoses RUQ abdominal pain R10.11 HTN (hypertension) I10 Hyperlipidemia E78.5 CPT Codes Advance Care Planning - Advance Care Planning discussion: On file, no changes ([id number]) Advance Care Planning - Time spent: 1-15 minutes, on File ([id number]) Additional Codes PHQ-9 - 16630 - PHQ-9 Billing: Yes ([id number]) Advance Care Planning Advance Care Planning discussion: On file, no changes Forms completed: Health Care Proxy Time spent: 1-15 minutes, on File
== END 2025-01-22 11:43 | disposition home or self-care (01) ==
LOC: HO.HMCC 09:34
PROVIDERS: PCP Internal Medicine; Visit Provider Internal Medicine
DX: Z00.00 Encounter for general adult medical examination without abnormal findings (principal); R10.11 Right upper quadrant pain; I10 Essential (primary) hypertension; E78.5 Hyperlipidemia, unspecified

== ENCOUNTER → 2025-01-22 09:33 | Outpatient (BNVA) | payer MEDICARE, SELFPAY | PROVIDERS: PCP Internal Medicine; Visit Provider Internal Medicine | DX: Z00.00 Encounter for general adult medical examination without abnormal findings (principal); R10.13 Epigastric pain; R10.11 Right upper quadrant pain; I10 Essential (primary) hypertension; E78.5 Hyperlipidemia, unspecified; K29.70 Gastritis, unspecified, without bleeding; Z79.899 Other long term (current) drug therapy | CPT/HCPCS: 96127 ==

== ENCOUNTER 2025-02-12 12:45 | Outpatient (REF) | payer MEDICARE, SELFPAY ==
--- OUTSIDE RECORDS SUMMARY | 2025-02-12 15:30 | XMS_ITS | Encounter Summary ---
Author Organization [facility] Address [address] [place] [address] Care Team Providers Care Machine Milker Name Role Phone Aguila Narayanan MD Primary Care Provider Leah Jordan MD Primary Care Provider Aguila Cole MD Unavailable Unavailable Encounter Details Date Type Department Care Team Description 05/08/2017 Transfer Records Medical Records [address] [place] [address] Abstract, Provider Social History Tobacco Use Types Packs/Day Years Used Date Smoking Tobacco: Never Smokeless Tobacco: Never Sex Assigned at Date Recorded Not on file documented as of this encounter Plan of Treatment Not on file documented as of this encounter Visit Diagnoses Not on filedocumented in this encounter Care Teams Machine Milker Relationship Specialty Start Date End Date Aguila Narayanan MD PCP - General Internal Medicine 03/12/17 03/10/20 Leah Oliva MD PCP - General 03/11/20 Aguila Narayanan MD Internal Medicine 03/11/20 documented as of this encounter
--- OUTSIDE RECORDS SUMMARY | 2025-02-12 15:30 | XMS_ITS | Encounter Summary ---
Author Organization [facility] Address [address] [place] [address] Care Team Providers Care Clinical Quality Assurance Specialist Name Role Phone Aguila Narayanan MD Primary Care Provider Leah Jordan MD Primary Care Provider Aguila Cole MD Unavailable Unavailable Encounter Details Date Type Department Care Team Description 05/03/2017 Release of Information Medical Records [address] [place] [address] Abstract, Provider Social History Tobacco Use Types Packs/Day Years Used Date Smoking Tobacco: Never Smokeless Tobacco: Never Sex Assigned at Date Recorded Not on file documented as of this encounter Plan of Treatment Not on file documented as of this encounter Visit Diagnoses Not on filedocumented in this encounter Care Teams Clinical Quality Assurance Specialist Relationship Specialty Start Date End Date Aguila Narayanan MD PCP - General Internal Medicine 03/12/17 03/10/20 Leah Oliva MD PCP - General 03/11/20 Aguila Narayanan MD Internal Medicine 03/11/20 documented as of this encounter
--- OUTSIDE RECORDS SUMMARY | 2025-02-12 15:30 | XMS_ITS | Encounter Summary ---
Author Organization [facility] Address [address] [place] [address] Care Team Providers Care Oil Drilling Engineer Name Role Phone Aguila Narayanan MD Primary Care Provider Leah Jordan MD Primary Care Provider Aguila Cole MD Unavailable Unavailable Encounter Details Date Type Department Care Team Description 02/27/2017 Fit Model Report Medical Records [address] [place] [id number] Aguila Narayanan MD Social History Tobacco Use Types Packs/Day Years Used Date Smoking Tobacco: Never Assessed Sex Assigned at Date Recorded Not on file documented as of this encounter Plan of Treatment Not on file documented as of this encounter Visit Diagnoses Not on filedocumented in this encounter Care Teams Oil Drilling Engineer Relationship Specialty Start Date End Date Aguila Narayanan MD PCP - General Internal Medicine 03/12/17 03/10/20 Leah Oliva MD PCP - General 03/11/20 Aguila Narayanan MD Internal Medicine 03/11/20 documented as of this encounter
--- OUTSIDE RECORDS SUMMARY | 2025-02-12 15:30 | XMS_ITS | Clinical Summary ---
Author Organization [facility] Address [address] [place] [address] Care Team Providers Care Music Promoter Name Role Phone Leah Oliva MD Primary Care Provider Aguila Cole MD Unavailable Unavailable Medications Medication Sig Dispensed Refills Start Date End Date Status omeprazole (PRILOSEC) 20 MG capsule Take 20 mg by mouth daily. 0 Active lisinopril-hydrochloro thiazide (PRINZIDE,ZESTORETIC) 20-12.5 MG per tablet Take 1 tablet by mouth daily. 0 Active pravastatin (PRAVACHOL) 20 MG tablet Take 20 mg by mouth daily. 0 Active Calcium Citrate-Vitamin D (CALCIUM + D OR) Take by mouth daily. 0 Active aspirin EC 81 MG EC tablet Take 81 mg by mouth daily. 0 Active Social History Tobacco Use Types Packs/Day Years Used Date Smoking Tobacco: Never Smokeless Tobacco: Never Sex Assigned at Date Recorded Not on file Last Filed Vital Signs Vital Sign Reading Time Taken Comments Blood Pressure 120/70 05/02/2017 10:20 AM EST Pulse 66 05/02/2017 10:20 AM EST Temperature 37.1 C (98.7 F) 05/02/2017 10:20 AM EST Respiratory Rate - - Oxygen Saturation - - Inhaled Oxygen Concentration - - Weight 75.8 kg (167 lb) 05/02/2017 10:20 AM EST Height 154.9 cm (5' 1 ) 05/02/2017 10:20 AM EST Body Mass Index 31.55 05/02/2017 10:20 AM EST Plan of Treatment Health Maintenance Due Date Last Done Comments Covid-19 Vaccine (#1) 03/29/1946 DEPRESSION SCREEN 1957 TOBACCO CHECK/ADVISE 09/28/1963 DTAP/TDAP/TD (1 - Tdap) 1964 CHOLESTEROL SCREENING 1965 MAMMOGRAM 1985 SHINGLES VACCINE (1 of 2) 09/28/1995 BONE DENSITY SCREENING 2010 FALL RISK ASSESSMENT 2010 PNEUMOCOCCAL VACCINE (1 - PCV) 2010 BMI CHECK/ADVISE 04/08/2024 INFLUENZA (#1) 2024 Care Teams Music Promoter Relationship Specialty Start Date End Date Leah Oliva MD PCP - General 03/11/20 Aguila Narayanan MD Internal Medicine 03/11/20
== END 2025-02-12 12:46 | disposition home or self-care (01) ==
LOC: HO.HMGCLNP 12:45
PROVIDERS: PCP Internal Medicine; Visit Provider Internal Medicine
DX: K29.70 Gastritis, unspecified, without bleeding (principal)
CPT/HCPCS: 87338

== ENCOUNTER 2025-02-25 09:28 | Outpatient (AMB) | payer MEDICARE, SELFPAY ==
--- NOTE | 2025-02-25 09:37 | MHC.PC.OV ---
Vital Signs 02/25/25 09:39 Height 5 ft 2 in Weight 160 lb BMI 29.3 BP 134/76 Blood Pressure Location Lt brachial Position Sitting Pulse 66 Pulse Source Pulse Oximeter Pulse Oximetry (%) 95 Intake Visit Reasons: 1 month follow up visit Allergies No Known Allergies Allergy (Verified 02/25/25 09:42) Medication List - Last Reconciled 02/25/25 by Leah Oliva MD alendronate (Fosamax) 70 mg PO QWEEK [aspirin 81 mg PO] calcium carbonate (Calcium 600) 600 mg PO DAILY fluticasone propionate 50 mcg/actuation (Flonase Allergy Relief) 1 spray intranasal DAILY lisinopril 40 mg PO DAILY lorazepam 0.5 mg PO DAILY PRN omeprazole 20 mg PO DAILY pravastatin 20 mg PO DAILY triamterene-hydrochlorothiazid 37.5-25 mg 1 tab PO DAILY Tobacco use date assessed: 07/22/24 Fall risk assessment: No Falls in past year Last assessed Fall Risk: 02/25/25 Dental Screening Dental Screen Date: 07/22/24 HPI 1 month follow up visit HPI Details Patient presents for the follow-up of chronic abdominal pain. Her symptoms resolved with omeprazole and following anti GERD diet. Hypertension hyperlipidemia are controlled on current medications [facility] Medical History (Updated 02/25/25 @ 10:44 by Leah Oliva MD) Gastritis Annual physical exam Hyperlipidemia Cough GERD (gastroesophageal reflux disease) HTN (hypertension) Surgical History Hx of left inguinal hernia repair History of bilateral inguinal hernia repair H/O colonoscopy Family History Father Dementia Mother No problems noted. Social History Housing: House Alcohol intake: current Alcohol intake frequency: a few times a month Comment: COUNTS CORRECT Patient Tobacco Use Status: Never used Tobacco e-Cigarette/Vaping Use: Never Used service: No Current occupational status: retired Cognitive needs: No Hearing needs: No Vision needs: No Questionnaire Thrive Questionnaire Date Thrive assessed: 07/20/24 I am a: Patient What is your living situation today?: I have a steady place to live Within the past 12 months, did the food you bought not last and you didn't have the money to get more?: Never true Within the past 12 months, did you worry whether your food would run out before you got money to buy more?: Never true Do you have trouble paying for medicines?: No Do you have trouble getting transportation to medical appointments?: No Do you have trouble paying your heating and electricity bill?: No Do you have trouble taking care of your child, family member or friend?: No Do you have trouble with day-to-day activities such as bathing, preparing meals, shopping, managing finances, etc.?: No Are you currently unemployed and looking for a job?: No Are you interested in more education?: No Please select the resources that you would like help with: None Currently or been in a relationship where the following occur: No concerns reported THRIVE Score: 0 KAL-7 AMB Questionnaire KAL-7 Date KAL - 7 assessed: 07/22/24 Source: Developed by Drs. Tejas Miller, Tatum Reilly, Kayden Handley and colleagues, with an educational peirco from [employer]. Review of Systems Const All systems reviewed & are unremarkable except as noted in HPI and below Card Reports no additional complaints Resp Reports no additional complaints GI Reports no additional complaints Reports no additional complaints Physical exam (Primary Care) Vital Signs: Last Vital Signs Pulse 66 02/25/25 09:39 BP 134/76 02/25/25 09:39 Pulse Ox 95 02/25/25 09:39 BMI result Body Mass Index 29.3 Tobacco/Smoking Status: Tobacco use Status Tobacco use date assessed 07/22/24 02/25/25 09:38 Patient Tobacco Use Status Never used Tobacco 02/25/25 09:38 e-Cigarette/Vaping Use Never Used 02/25/25 09:38 Thrive Assessment: Date of Thrive Assessment Date Thrive assessed 07/20/24 02/25/25 09:38 Currently or been in a relationship where the following occur: No concerns reported Const General: no acute distress HENMT Head: Yes normal to inspection Eyes General: appearance normal, both eyes and all related structures Neck Neck: Yes supple Resp Effort & Inspection: normal respiratory effort Auscultation: clear to auscultation bilaterally Cardio Rhythm: regular rhythm Heart sounds: S1 normal heart sound present and S2 normal heart sound present GI Inspection: Yes normal to inspection Palpation (GI): Soft to palpation Percussion: Yes normal to percussion Auscultation: normal bowel sounds Coding Level of Care Code Est Pt Level 4 (94433) Diagnoses Hyperlipidemia E78.5 HTN (hypertension) I10 GERD (gastroesophageal reflux disease) K21.9 Gastritis K29.70 Assessment & Plan Assessment & Plan (1) Hyperlipidemia: Code(s): E78.5 - Hyperlipidemia, unspecified Category: Medical Plan: Continue statin (2) HTN (hypertension): Code(s): I10 - Essential (primary) hypertension Category: Medical Plan: Continue current medications (3) GERD (gastroesophageal reflux disease): Code(s): K21.9 - Gastro-esophageal reflux disease without esophagitis Category: Medical Plan: Continue anti GERD diet and PPI as needed (4) Gastritis: Code(s): K29.70 - Gastritis, unspecified, without bleeding Category: Medical Plan: Negative H pylori stool antigen, continue PPI as needed for any recurrent symptoms patient will be referred to GI for endoscopy Orders: Orders Lipid Panel Today E78.5 - Hyperlipidemia, unspecified, I10 - Essential (primary) hypertension Comprehensive [place]. Panel Fast Today E78.5 - Hyperlipidemia, unspecified, I10 - Essential (primary) hypertension
[2025-02-25 09:39] VITALS: BP 134/76; PULSE 66; O2SAT 95; BMI 29.3
== END 2025-02-25 10:45 | disposition home or self-care (01) ==
LOC: HO.HMCC 09:28
PROVIDERS: PCP Internal Medicine; Visit Provider Internal Medicine
DX: E78.5 Hyperlipidemia, unspecified (principal); I10 Essential (primary) hypertension; K21.9 Gastro-esophageal reflux disease without esophagitis; K29.70 Gastritis, unspecified, without bleeding

== ENCOUNTER → 2025-02-25 09:28 | Outpatient (BNVA) | payer MEDICARE, SELFPAY | PROVIDERS: PCP Internal Medicine; Visit Provider Internal Medicine | DX: E78.5 Hyperlipidemia, unspecified (principal); I10 Essential (primary) hypertension; K21.9 Gastro-esophageal reflux disease without esophagitis; K29.70 Gastritis, unspecified, without bleeding | CPT/HCPCS: 99212 ==